=== PATIENT | female | born 1985 | race Caucasian/White ===

== ENCOUNTER 2017-07-01 18:51 | Inpatient (IN) | payer OTHER ==
[~2017-07-01] VITALS: Ht 160 cm; Wt 56.7 kg
[2017-07-01] MEDS ORDERED: NICOTINE POLACRILEX 4 MG GUM-PK OF TEN BC PRN (20:00)
[2017-07-01] MEDS ORDERED: LORAZEPAM 2 MG/1 ML VIAL IM PRN (20:00)
[2017-07-01] MEDS ORDERED: diphenhydrAMINE 50 MG CAPSULE PO PRN (20:00)
[2017-07-01] MEDS ORDERED: MIRALAX 17 GM POWD.PACK PO PRN (20:00)
[2017-07-01] MEDS ORDERED: LORAZEPAM 1 MG TABLET PO PRN ×2 (20:00)
[2017-07-01] MEDS ORDERED: MAG HYDROX/AL HYDROX/SIMETH 30 ML LIQUID UDC PO PRN (20:00)
[2017-07-01] MEDS ORDERED: ACETAMINOPHEN 325 MG TABLET PO PRN (20:00)
[2017-07-01] MEDS ORDERED: LOPERAMIDE HCL 2 MG CAPSULE PO PRN ×2 (20:00)
[2017-07-01] MEDS ORDERED: ONDANSETRON ODT 4 MG TAB.RAPDIS SL PRN (20:00)
[2017-07-01] MEDS ORDERED: ONDANSETRON 4 MG/2 ML VIAL IM PRN (20:00)
[2017-07-01] MEDS ORDERED: NICOTINE 14 MG/24HR PATCH TD PRN (20:00)
--- NOTE | 2017-07-01 20:00 | NUR ---
PRE - ADMISSION NOTE: Patient is a 32 year old female AOX4, presented to [facility] to detoxify from ETOH. Patient appears anxious, nervous, tremors to touch with flushed face. Patient is cooperative, speech is clear and audible. Patient reports NKA. Patient's vital signs are as follows: BP 132/97, HR92,T: 98.3, RA SPO2 97%. Patient denies any pain at this time. Patient instructed on unit protocol of vitals Q4H and COWS/CIWA assessments. Patient verbalized understanding and agreement. Patient also instructed on policy regarding destruction of any controlled substances/prescriptions brought to facility, and handling of all medications. Patient verbalized understanding and agreement. Will complete admission assessment when patient is brought up to unit.
[2017-07-01 20:03] VITALS: BP 133/97
--- NOTE | 2017-07-01 20:03 | NUR ---
ADMISSION NOTE: New patient is a 32year old female admitted to [facility] on 07/01/2017 @2002 for medically supervised withdrawal from Alcohol. Patient reports NKA. Patient is on Full Code, Regular diet, is on Fall and Seizures precautions. The patient denies a history of withdrawal-induced seizures. Past Medical History: 1. Anxiety disorder, 3. Depressive disorder, 4. Chronic tobacco use 5. Alcohol use disorder Patient denies Past Surgical History. PCP - patient can't recalled the name. Pre-assessment completed in intake. Patient provided UDS test at this time. Patient is ambulatory with steady gate, stable, A&Ox4, speech is clear. Height: 63 in, Weight: 125 lbs by standing scale. VS upon admission: BP 133/97, HR 92, Temperature 98.3, SPO2 98%, pain rated "0/10". CIWA 8. The patient presented with anxiety, agitation, nervousness, tremors that can be felt, diaphoresis, restless legs, and fatigue. Patient denies SI/HI. Upon initial assessment respirations unlabored and even. Patient denies SOB and chest pain. Lungs Sounds are clear bilaterally. Bowel Sounds active in all x4 quadrants. Abdomen is soft and non-tender. PERRLA, brisk capillary refill, photogrammetric tech equal and strong. Skin is intact, warm and dry to touch. Patient reports the following Substances Use: 1 ."Alcohol PO "since 2006. Patient reports "consuming Vodka 375 ml every day". Last used "Vodka 750 ml on 07/01/2017 @1000. She has been to multiple treatment programs in the past, the latest being at "[facility] 1 week since 06/21/2017 to 06/28/2017". Patient reports the longest being "1 week of sobriety but relapsed today". Patient reports "Tobacco use [id number] every day 1 pack = 20 cigarettes". Patient reports recent hospitalization in "[facility] today in the morning for few hours". MRSA collected from nares and sent to lab as ordered. Patient did not brought medications. Patient reports used " Lexapro 20 mg 1 tab PO on 07/01/2017@1000 ". Patient oriented to her room, Nurse Call Light, and [facility] Floor. Encouraged fluids as tolerated. Encouraged to attend activities groups. All needs met. Safety measures on place. Call light within reach, bed in lowest position and locked, padded rails up bilaterally rails up bilaterally. Will continue to monitor closely.
--- NOTE | 2017-07-01 20:34 | NUR ---
RN note Trazodone Patient reports taking Trazodone 300 mg PO HS. Notified Dr. Marie and he ordered one-time of the said medication to be administered bev and MD to see patient in the morning. Carried out.
[2017-07-01 20:44] LABS: *URINE HCG, QUAL NEGATIVE (NEGATIVE)
[2017-07-01] MEDS ORDERED: TRAZODONE 100 MG TABLET PO ONE (20:45)
[2017-07-01 20:54] LABS: *AMPHETAMINE, URINE NEGATIVE (NEGATIVE); *BARBITURATE, URINE POSITIVE (NEGATIVE); *CANNABINOID, URINE NEGATIVE (NEGATIVE); *COCCAINE, URINE NEGATIVE (NEGATIVE); *OPIATE, URINE NEGATIVE (NEGATIVE); *PHENCYCLIDINE SCREEN,URINE NEGATIVE (NEGATIVE)
--- NOTE | 2017-07-01 20:56 | NUR ---
RN note Thiamine Wasted 200 mg of Thiamine in the Pyxis instead of 100 mg. Juan of pharmacy was informed. Thiamine 100 mg IM injection to be administered by primary RN.
[2017-07-01] MEDS: GABAPENTIN 300 MG CAPSULE PO SCH (20:57)
--- NOTE | 2017-07-01 20:58 | NUR ---
PRN TRAZODONE 300 MG 3 TAB PO Patient c/o insomnia. PRN Trazodone 300 mg 3 tab. PO administrated with full glass of water as ordered. Patient tolerated well. All needs met. Safety measures on place. Call light within reach, bed in lowest position and locked, padded rails up bilaterally rails up bilaterally. Will continue to monitor closely.
--- NOTE | 2017-07-01 20:58 | NUR ---
PRN ATIVAN 2 MG 2 TAB PO ADMINISTRATION Patient c/o increased anxiety. PRN Ativan 2 mg 2 tab PO for CIWA 8 administrated as ordered. Patient tolerated well. All needs met. Safety measures on place. Call light within reach, bed in lowest position and locked, padded rails up bilaterally rails up bilaterally. Will continue to monitor closely.
[2017-07-01 21:00] LABS: BASOPHILS % (AUTO) 0.4 % (0.0-2.0); EOSINOPHILS % (AUTO) 0.4 % (0.0-7.0); HEMATOCRIT 40.6 % (37-47); HEMOGLOBIN 13.6 G/DL (12.0-16.0); LYMPHOCYTES # (AUTO) 1.8 K/UL (0.8-4.8); LYMPHOCYTES % (AUTO) 39.5 % (20.5-51.5); MEAN CORPUSCULAR HGB CONC 34 g/dL (32.0-37.0); MEAN CORPUSCULAR VOLUME 98.3 FL (81.0-99.0); MONOCYTES # (AUTO) 0.2 K/UL (0.1-1.30); MONOCYTES % (AUTO) 4.4 % (0.0-11.0); NEUTROPHILS # (AUTO) 2.5 K/UL (1.8-8.9); NEUTROPHILS % (AUTO) 55.3 % (38.5-71.5); PLATELET COUNT (AUTO) 232 K/UL (150-450); RED BLOOD CELL COUNT(AUTO) 4.13 MIL/UL (4.2-5.4); WHITE BLOOD COUNT (AUTO) 4.5 K/UL (4.0-11.2)
[2017-07-01] MEDS ORDERED: THIAMINE HCL 200 MG/2 ML VIAL IM ONE (21:00)
[2017-07-01] MEDS ORDERED: LORAZEPAM 1 MG TABLET PO SCH (21:00)
[2017-07-01 21:08] LABS: BILIRUBIN,TOTAL 0.3 mg/dL (0.2-1.0); CREATININE 0.7 mg/dL (0.6-1.3); MAGNESIUM 1.6 mg/dL (1.8-2.4); POTASSIUM 3.8 mmol/L (3.5-5.1); TOTAL PROTEIN, SERUM 7.3 g/dL (6.4-8.2)
--- NOTE | 2017-07-01 21:58 | NUR ---
RE-ASSESSMENT Patient is sleeping. Respirations even and unlabored. RR 15. PRN Trazodone 300 mg 3 tab. PO administrated for insomnia @2057 was effective. All needs met. Safety measures on place. Call light within reach, bed in lowest position and locked, padded rails up bilaterally rails up bilaterally. Will continue to monitor closely.
--- NOTE | 2017-07-01 21:58 | NUR ---
RE-ASSESSMENT Patient is sleeping. Respirations even and unlabored. RR 15. PRN Ativan 2 mg 2 tab PO administrated for anxiety @2057 was effective. All needs met. Safety measures on place. Call light within reach, bed in lowest position and locked, padded rails up bilaterally rails up bilaterally. Will continue to monitor closely.
[2017-07-02] VITALS (8 sets, daily range): BP systolic 106–144; BP diastolic 65–104
--- NOTE | 2017-07-02 06:51 | NUR ---
END OF SHIFT NOTE: Patient is a 32 year old female admitted to [facility] on 07/01/2017 @2002 for medically supervised withdrawal from Alcohol. Patient reports NKA, is on Full Code, Regular Diet, Fall and Seizures Precautions. The patient denies a history of withdrawal-induced seizures. Patient reports "consuming 750 mL of vodka on a daily basis, last used 750 ml on 07/01/2017@1000". She has struggled with multiple attempts at sobriety, the longest being 1 week of sobriety but relapsed today. She has been to multiple treatment programs in the past, the latest being at [facility] 1 week since 06/21/2017 to 06/28/2017. Past Medical History: Anxiety disorder, Depressive disorder, Chronic tobacco use, Alcohol use disorder. Patient discharged from a [facility] 3 days ago, and from [facility] on 07/01/2017. MRSA nares collected and sent to lab. Last CIWA 7 @0400. COWS/CIWA taken when patient's awake during night. Last VS @0400: T: 98.5, BP: 125/83, HR: 90, RR:18, RA O2Sat: 96%, body aches: "6/10". Patient denies SI/HI. Respirations unlabored and even. Skin is intact, warm and dry to touch. PRN Ativan 2 mg 2 tab PO administrated for anxiety@ 2057 and PRN Trazodone 300 mg 3 tab. PO administrated for insomnia @2057 were effective. Patient slept 8 hours, intake 500 ml, voided x1. Encouraged fluids intake as tolerated. Encouraged to attend groups activities. All needs met. Safety measures on place. Call light within reach, bed in lowest position and locked, padded rails up bilaterally. Patient endorsed to day shift nurse. Report given.
[2017-07-02] MEDS ORDERED: TRAZ300T2 PO (07:14)
--- NOTE | 2017-07-02 07:20 | NUR ---
Start of shift note SBAR report rcv'd. Pt was admitted for ETOH dependence. Pt has a PMHx of anxiety and depression. Pt denies any allergies, is on a regular diet and is a full code. Pt is on PRN medication to manage her s/s of withdrawal. Pt is currently resting in bed, pt has no complaints at this time. Will continue to monitor pt. All needs addressed at this time.
[2017-07-02] MEDS: LORAZEPAM 1 MG TABLET PO SCH ×3 (08:37→20:23)
[2017-07-02] MEDS: THIAMINE HCL 100 MG TABLET PO SCH (08:37)
[2017-07-02] MEDS: FOLIC ACID 1 MG TABLET PO SCH (08:37)
[2017-07-02] MEDS: GABAPENTIN 300 MG CAPSULE PO SCH (08:37)
[2017-07-02] MEDS: MULTIVITAMINS,THERAPEUTIC TABLET PO SCH (08:37)
[2017-07-02] MEDS ORDERED: TUBERCULIN,PURIF.PROT.DERIV. 5 TU/0.1 ML TEST ID ONE (09:00)
[2017-07-02] MEDS ORDERED: MAGNESIUM OXIDE 400 MG TABLET PO ONE (09:00)
[2017-07-02] MEDS: ESCITALOPRAM OXALATE 10 MG TABLET PO SCH (10:38)
[2017-07-02] MEDS: IBUPROFEN 400 MG TABLET PO PRN (12:15)
--- NOTE | 2017-07-02 12:15 | NUR ---
PRN administration Pt c/o headache 02/09. Administered PRN motrin per MD order. Will continue to monitor pt.
--- NOTE | 2017-07-02 13:15 | NUR ---
Reassessment Pt states that her headache is subsided. Will continue to monitor pt. All other needs addressed at this time.
[2017-07-02] MEDS ORDERED: LORAZEPAM 1 MG TABLET PO ONE (13:30)
[2017-07-02] MEDS: CLONIDINE HCL 0.1 MG TABLET PO PRN (17:20)
--- NOTE | 2017-07-02 17:20 | NUR ---
PRN administration Pt c/o severe anxiety and trembling. Pt has a CIWA of 11 and BP of 144/104. Administered PRN ativan and clonidine per MD order. Will continue to monitor pt.
--- NOTE | 2017-07-02 18:14 | NUR ---
Unable to reassess pt Pt is off unit, will reassess upon arrival on unit.
--- NOTE | 2017-07-02 18:29 | NUR ---
START OF SHIFT NOTE: Patient is a 32 year old female admitted to [facility] on 07/01/2017 @2002 for medically supervised withdrawal from Alcohol. Patient reports NKA, is on Full Code, Regular Diet, Fall and Seizures Precautions. The patient denies a history of withdrawal-induced seizures. Patient reports "consuming 750 mL of vodka on a daily basis, last used 750 ml on 07/01/2017@1000". She has struggled with multiple attempts at sobriety, the longest being 1 week of sobriety but relapsed 2 on 07/01/2017. She has been to multiple treatment programs in the past, the latest being at [facility] on 06/21/2017 to 06/28/2017. Past Medical History: Anxiety disorder, Depressive disorder, Chronic tobacco use, Alcohol use disorder. Patient discharged from a [facility] 3 days ago, and from [facility] on 07/01/2017. MRSA nares collected and sent to lab. Upon endorsement patient is in her room alert and oriented x4 with stable gait. Speech is soft and clear. CIWA 5. VSWNL. Respirations unlabored and even. Lungs Sounds are clear thoroughly. Abdomen is soft, non-tender. Bowels Sounds presents in all x4 quadrants. Skin is intact, warm, and dry. Encouraged to fluids intake as tolerated. Encouraged to attending groups activities. All needs met. Safety measures in place: Call light within reach, bed locked, and in lowest position, padded bed rails up bilaterally. Patient endorsed by day shift nurse, report received.
--- NOTE | 2017-07-02 18:29 | NUR ---
End of shift note Pt was admitted for ETOH dependence. Pt has a PMHx of anxiety and depression. Pt denies any allergies, is on a regular diet and is a full code. Pt started on an ativan taper during the shift. Pt required a onetime ativan and one PRN ativan/clonidine to manage her s/s of withdrawal with effectiveness. Pt ate 0% of breakfast, 100% of lunch and dinner, drank 2009ml of fluids and had 3 voids. Pt has no complaints at this time. All needs addressed at this time. SBAR report to be endorsed to oncoming nurse.
--- NOTE | 2017-07-02 18:35 | NUR ---
Reassessment Pt has a CIWA of 5 and a BP of 130/90. Pt states the medication was effective in alleviating her s/s of withdrawal. All needs addressed at this time.
[2017-07-02] MEDS: TRAZODONE 100 MG TABLET PO PRN (20:23)
--- NOTE | 2017-07-02 20:23 | NUR ---
PRN TRAZODONE 300 MG 3 TAB PO ADMINISTRATION Patient c/o insomnia. PRN Trazodone 300 mg 3 tab. PO administrated with full glass of water as ordered. Patient tolerated well. All needs met. Safety measures on place. Call light within reach, bed in lowest position and locked, padded rails up bilaterally rails up bilaterally. Will continue to monitor closely.
[2017-07-02] MEDS ORDERED: GABAPENTIN 300 MG CAPSULE PO SCH (21:00)
--- NOTE | 2017-07-02 21:23 | NUR ---
RE-ASSESSMENT Patient is sleeping. Respirations even and unlabored. RR 16. PRN Trazodone 300 mg 3 tab. PO administrated for insomnia @2022 was effective. All needs met. Safety measures on place. Call light within reach, bed in lowest position and locked, padded rails up bilaterally rails up bilaterally. Will continue to monitor closely.
[2017-07-03] VITALS: BP 116/81
[2017-07-03] MEDS: CLONIDINE HCL 0.1 MG TABLET PO PRN (03:01)
--- NOTE | 2017-07-03 03:01 | NUR ---
PRN CLONIDINE 0.1 MG 1 TAB PO ADMINISTRATION Patient c/o anxiety. CIWA 5. VS: BP 125/85, HR 87, T 97.9, RR 19, RA O2Sat 98%. PRN Clonidine 0.1 mg 1 tab PO administrated for anxiety as ordered with full glass of water. Patient tolerated well. All needs met. Safety measures on place. Call light within reach, bed in lowest position and locked, padded rails up bilaterally. Will continue to monitor closely.
[2017-07-03 04:00] VITALS: BP 125/85
--- NOTE | 2017-07-03 04:01 | NUR ---
RE-ASSESSMENT Patient is sleeping. Respirations even and unlabored. RR 14. PRN Clonidine 0.1 mg 1 tab PO for anxiety administrated @0301 was effective. All needs met. Safety measures on place. Call light within reach, bed in lowest position and locked, padded rails up bilaterally rails up bilaterally. Will continue to monitor closely.
--- NOTE | 2017-07-03 06:57 | NUR ---
END OF SHIFT NOTE: Patient is a 32 year old female admitted to [facility] on 07/01/2017 @2003 for medically supervised withdrawal from Alcohol. Patient reports NKA, is on Full Code, Regular Diet, Fall and Seizures Precautions. The patient denies a history of withdrawal-induced seizures. Patient reports "consuming 750 mL of vodka on a daily basis, last used 750 ml on 07/01/2017@1000". She has struggled with multiple attempts at sobriety, the longest being 1 week of sobriety but relapsed today. PMH: Anxiety disorder, Depressive disorder, Chronic tobacco use, Alcohol use disorder. Last CIWA 5 @0400. COWS/CIWA taken when patient's awake during night. VS: BP 125/85, HR 87, T 97.9, RR 19, RA O2Sat 98, pain level "0/10". Patient denies SI/HI. Respirations unlabored and even. Skin is intact, warm and dry to touch. PRN Trazodone 300 mg 3 tab. PO administrated for insomnia @2022, PRN Clonidine 0.1 mg 1 tab PO administrated @300for anxiety were effective. Patient slept 5 hours, intake 1,500 ml, voided x2. Encouraged fluids intake as tolerated. Encouraged to attend groups activities. All needs met. Safety measures on place. Call light within reach, bed in lowest position and locked, padded rails up bilaterally. Patient endorsed to day shift nurse. Report given.
--- NOTE | 2017-07-03 07:30 | NUR ---
START OF SHIFT Pt 32 y/o female admitted for etoh dependence. Pt received awake standing in room watching television. Pt alert and oriented to name, place, and time. Perrla. Skin warm and slightly moist to touch. Respirations even and unlabored. Bilateral hand tremors noted slightly. Pt expressed felt anxious r/t handling finances and bills, and stated did not sleep well last night. Told pt I will make discharge aware when they arrive to help her. It was reported that pt slept for 5 hours last night. Bed on lowest position with side rails x2 up for safety. Call light within reach. No distress noted at this time.
[2017-07-03 08:06] LABS: HEPATITIS B SURFACE AG Negative (Negative)
[2017-07-03] MEDS: ESCITALOPRAM OXALATE 10 MG TABLET PO SCH (08:18)
[2017-07-03] MEDS: MULTIVITAMINS,THERAPEUTIC TABLET PO SCH (08:18)
[2017-07-03] MEDS: THIAMINE HCL 100 MG TABLET PO SCH (08:18)
[2017-07-03] MEDS: FOLIC ACID 1 MG TABLET PO SCH (08:18)
[2017-07-03] MEDS: LORAZEPAM 1 MG TABLET PO SCH ×4 (08:18→20:27)
[2017-07-03 08:21] VITALS: BP 114/81
[2017-07-03] MEDS ORDERED: GABAPENTIN 300 MG CAPSULE PO SCH (09:00)
[2017-07-03] MEDS ORDERED: LORAZEPAM 1 MG TABLET PO SCH (09:00)
[2017-07-03] MEDS ORDERED: hydrALAZINE HCL 50 MG TABLET PO PRN (12:30)
[2017-07-03 12:31] VITALS: BP 114/87
--- NOTE | 2017-07-03 13:49 | NUR ---
therapist prompted client to attend group today.
[2017-07-03] MEDS: GABAPENTIN 300 MG CAPSULE PO SCH ×2 (14:57→20:26)
[2017-07-03] MEDS ORDERED: INFLUENZA VACCINE 2017-2018 0.5 ML DISP.SYRIN IM ONE (15:00)
[2017-07-03] MEDS ORDERED: PNEUMOCOCCAL 23-VAL P-SAC VAC 0.5 ML VIAL IM ONE (15:00)
[2017-07-03 17:04] VITALS: BP 131/85
--- NOTE | 2017-07-03 17:15 | NUR ---
PRN Pt states feels nauseated. Zofran odt prn per MD order given and tolerated well.
--- NOTE | 2017-07-03 18:15 | NUR ---
END OF SHIFT Pt 32 y/o female admitted for etoh dependence. Pt alert and oriented to name, place, and time. Perrla. Skin warm and dry to touch. Respirations even and unlabored. Bilateral hand tremors noted. Pt with periods of anxiety this morning. Pt attended group activity. Pt was seen by MD today. Pt medication compliant and tolerated well. No ASE noted. Bed on lowest position with side rails x2 up for safety. Call light within reach. No distress noted at this time.
--- NOTE | 2017-07-03 18:15 | NUR ---
PRN EVAL Pt denies any nausea at this time.
[2017-07-03 20:00] VITALS: BP 129/83
--- NOTE | 2017-07-03 20:00 | NUR ---
START OF SHIFT NOTE RECEIVED REPORT FROM DAY SHIFT NURSE. PATIENT IS A 32 YEAR OLD FEMALE ADMITTED FOR ETOH DEPENDENCE. PATIENT IS ON 5 DAY ATIVAN TAPER. UPON ADMISSION, PATIENT REPORTS DRINKING VODKA 750 ML DAILY FOR 1 WEEK. PATIENT REPORTS PMH OF ANXIETY, DEPRESSION AND ALCOHOL USE D/O. NO SEIZURE HISTORY . SKIN INTACT. PATIENT WAS GIVEN PRN ZOFRAN. LAST CIWA 6. PATIENT JUST RETURNED TO HER ROOM FROM GROUPS. PATIENT STATES SHE'S ANXIOUS BUT MEDICATIONS ARE EFFECTIVE IN CONTROLLING HER WITHDRAWAL SYMPTOMS. APPETITE IS GOOD AND DRINKING FLUIDS WELL. DENIES ANY PAIN AT THIS TIME AND NO N/V. ON FALL/SEIZURE PRECAUTION. SAFETY MEASURES IN PLACE. CALL LIGHT IN REACH. WILL CONTINUE TO MONITOR
[2017-07-03] MEDS: CLONIDINE HCL 0.1 MG TABLET PO SCH (20:26)
[2017-07-03] MEDS: TRAZODONE 100 MG TABLET PO PRN (21:24)
--- NOTE | 2017-07-03 21:24 | NUR ---
PRN TRAZADONE ADMINISTRATION PATIENT REQUESTS FOR SLEEP AID. PRN TRAZADONE GIVEN. WILL MONITOR FOR EFFECTIVENESS
--- NOTE | 2017-07-03 22:30 | NUR ---
PRN TRAZADONE RE-ASSESSMENT PATIENT ASLEEP AT THIS TIME. RESPIRATION EVEN AND UNLABORED. SAFETY MEASURES IN PLACE. CALL LIGHT IN REACH. WILL CONTINUE TO MONITOR.
[2017-07-04] VITALS: BP 92/53
--- NOTE | 2017-07-04 | NUR ---
CIWA DEFERRED PATIENT SLEEPING. CIWA DEFERRED. RESPIRATION EVEN AND UNLABORED. SAFETY MEASURES IN PLACE. CALL LIGHT IN REACH. WILL CONTINUE TO MONITOR
[2017-07-04 04:00] VITALS: BP_SYST 103; BP_SYST 115; BP_DIAS 70; BP_DIAS 71
--- NOTE | 2017-07-04 04:00 | NUR ---
CIWA DEFERRED PATIENT SLEEPING. CIWA DEFERRED. RESPIRATION EVEN AND UNLABORED. SAFETY MEASURES IN PLACE. CALL LIGHT IN REACH. WILL CONTINUE TO MONITOR
--- NOTE | 2017-07-04 07:22 | NUR ---
END OF SHIFT NOTE PATIENT IS A 32 YEAR OLD FEMALE ADMITTED FOR ETOH DEPENDENCE. PATIENT IS ON 5 DAY ATIVAN TAPER, TOLERATED WELL, NO ADVERSE REACTION. PATIENT STATES SHE WAS ANXIOUS , APPETITE IS GOOD AND DRINKING FLUIDS WELL, DENIES ANY PAIN AND NO N/V BEGINNING OF SHIFT. PER PATIENT MEDICATIONS ARE EFFECTIVE IN CONTROLLING HER WITHDRAWAL SYMPTOMS. PATIENT WAS GIVEN PRN TRAZADONE FOR SLEEP, EFFECTIVE. PATIENT COMPLIANT WITH MEDICATION AND TREATMENT PLAN. ON FALL/SEIZURE PRECAUTION. SAFETY MEASURES IN PLACE. CALL LIGHT IN REACH. WILL CONTINUE TO MONITOR . SLEPT 8 HOURS. FLUID INTAKE 1,500 ML. VOIDED X 2 . NO BM. LAST CIWA 5.
--- NOTE | 2017-07-04 07:30 | NUR ---
start of shift note: received pt from jammer hooker nurse, pt is in stable condition no s/s of pain or discomfort. pt is admitted to [facility] for etoh withdrawal/dependence. pt's last ciwa is 5. pt slept for 8 hrs. pt is tolerating taper medication well. no A/R to medication. will continue to monitor pt for any changes. and continue to meet pt's needs
[2017-07-04] MEDS: ESCITALOPRAM OXALATE 10 MG TABLET PO SCH (08:43)
[2017-07-04] MEDS: GABAPENTIN 300 MG CAPSULE PO SCH ×3 (08:43→20:43)
[2017-07-04] MEDS: THIAMINE HCL 100 MG TABLET PO SCH (08:44)
[2017-07-04] MEDS: CLONIDINE HCL 0.1 MG TABLET PO SCH ×2 (08:44→20:43)
[2017-07-04] MEDS: FOLIC ACID 1 MG TABLET PO SCH (08:44)
[2017-07-04] MEDS: MULTIVITAMINS,THERAPEUTIC TABLET PO SCH (08:44)
[2017-07-04] MEDS ORDERED: LORAZEPAM 1 MG TABLET PO SCH (09:00)
[2017-07-04 09:27] VITALS: BP 107/72
--- NOTE | 2017-07-04 10:45 | NUR ---
Therapist prompted client about group times. Client stated she would attend all groups today.
[2017-07-04 14:58] VITALS: BP 107/72
[2017-07-04] MEDS: LORAZEPAM 1 MG TABLET PO SCH ×2 (15:13→20:43)
[2017-07-04 16:46] VITALS: BP 128/88
--- NOTE | 2017-07-04 18:47 | NUR ---
END OF SHIFT NOTE: PT IS IN STABLE CONDITION AT THIS TIME NO S/S OF PAIN OR DISCOMFORT. PT IS ADMITTED TO [facility] FOR ETOH WITHDRAWAL/DEPENDENCE. PTS LAST CIWA 4. READ PT'S TB SKIN TEST AND IS NEGATIVE. NO A/R TO MEDICATIONS. WILL ENDORSE PT TO [employer]EN[employer]SE [employer]ANSPLANTER NURSE.
--- NOTE | 2017-07-04 19:00 | NUR ---
Start of Shift Patient Received. Patient is in activities room participating in group activities. Patient is a 32 year old female admitted on 07/01/17 for ETOH Dependence under the care of Dr. Cody and is currently receiving a 5 day Ativan taper. Patient verbalizes no known allergies, wishes to be full code, following a regular diet, placed on fall and seizure precautions, with skin noted intact. Past medical history of Anxiety and Depression. Per endorsement, PPD reassessed and noted to be negative. No PRN medications administered. Last noted CIWA 4. All needs attended to promptly. Will continue plan of care as ordered
[2017-07-04 20:41] VITALS: BP 126/87
[2017-07-04] MEDS: HYDROXYZINE PAMOATE 25 MG CAPSULE PO PRN (21:36)
[2017-07-04] MEDS: TRAZODONE 100 MG TABLET PO PRN (21:36)
--- NOTE | 2017-07-04 21:40 | NUR ---
PRN Medication Administration Patient is verbalizing increased anxiety and inability of falling asleep. PRN Vistaril and Trazodone administered as per ordered. Will continue to monitor.
--- NOTE | 2017-07-04 22:30 | NUR ---
PRN Medication Reassessment Patient is bed sleeping. Breathing even and non labored. No pain or discomfort noted as evidence of no facial grimicing noted. PRN Vistaril and trazodone noted to be effective. Will continue to monitor.
[2017-07-05 00:09] VITALS: BP 110/77
[2017-07-05 04:40] VITALS: BP 102/53
--- NOTE | 2017-07-05 07:08 | NUR ---
End of Shift Patient is in bed sleeping but easily aroused to verbal stimuli. Breathing even and non labored. Patient is a 32 year old female admitted on 07/01/17 for ETOH Dependence and continues on a 5 day Ativan taper. No Known Allergies, Full Code, following a regular diet, placed on fall and seizure precautions, with skin noted intact. Past medical history of Anxiety and Depression. Patient received PRN Trazodone and Vistaril with medications noted to be effective. Last noted CIWA 8. All needs attended to promptly. Will endorse to continue plan of care as ordered.
--- NOTE | 2017-07-05 07:36 | NUR ---
START OF SHIFT Pt 32 y/o female admitted for etoh dependence. Pt received awake in bed. Pt alert and oriented to name, place, and time. Perrla. Skin warm and slightly moist to touch. Respirations even and unlabored. Bilateral hand tremors noted slightly. Pt appears anxiuos with pressured speech noted. It was reported that pt slept for 7.5 hours last night. Bed on lowest position with side rails x2 up for safety. Call light within reach. No distress noted at this time.
[2017-07-05 08:00] VITALS: BP 110/67
[2017-07-05] MEDS: GABAPENTIN 300 MG CAPSULE PO SCH ×3 (08:10→20:46)
[2017-07-05] MEDS: IBUPROFEN 400 MG TABLET PO PRN (08:10)
[2017-07-05] MEDS: THIAMINE HCL 100 MG TABLET PO SCH (08:10)
[2017-07-05] MEDS: HYDROXYZINE PAMOATE 25 MG CAPSULE PO PRN (08:10)
[2017-07-05] MEDS: FOLIC ACID 1 MG TABLET PO SCH (08:10)
[2017-07-05] MEDS: ESCITALOPRAM OXALATE 10 MG TABLET PO SCH (08:10)
[2017-07-05] MEDS: MULTIVITAMINS,THERAPEUTIC TABLET PO SCH (08:10)
--- NOTE | 2017-07-05 08:13 | NUR ---
PRN Pt with c/o headache 01/09. Motrin po prn per MD order given and tolerated well.
--- NOTE | 2017-07-05 08:14 | NUR ---
PRN pt states feels anxious. Vistaril po prn per MD order given and tolerated well.
[2017-07-05] MEDS ORDERED: LORAZEPAM 1 MG TABLET PO SCH (09:00)
--- NOTE | 2017-07-05 09:13 | NUR ---
PRN EVAL Pt states headache 10/12.
--- NOTE | 2017-07-05 09:14 | NUR ---
PRN EVAL Pt states feels less anxious at this time.
[2017-07-05 12:37] VITALS: BP 114/75
[2017-07-05] MEDS ORDERED: AZITHROMYCIN 250 MG TABLET PO ONE (13:00)
[2017-07-05] MEDS ORDERED: ESCI10TA PO (15:01)
[2017-07-05] MEDS ORDERED: CLON0.1T14 PO (15:01)
[2017-07-05] MEDS ORDERED: AZIT250T6 PO (15:01)
[2017-07-05] MEDS ORDERED: GABA-534 PO (15:01)
[2017-07-05] MEDS ORDERED: IBUP-1953 PO (15:01)
[2017-07-05] MEDS ORDERED: HYDR-3895 PO (15:01)
[2017-07-05 17:07] VITALS: BP 123/90
--- NOTE | 2017-07-05 18:19 | NUR ---
END OF SHIFT Pt 32 y/o female admitted for etoh dependence. Pt alert and oriented to name, place, and time. Perrla. Skin warm and dry to touch. Respirations even and unlabored. Bilateral hand tremors noted. Pt attended group activity. Pt was seen by MD today. Pt medication compliant and tolerated well. No ASE noted. Bed on lowest position with side rails x2 up for safety. Call light within reach. No distress noted at this time.
--- NOTE | 2017-07-05 19:00 | NUR ---
Start of Shift Patient Received. Patient is in activities room participating in group activities. Patient is a 32 year old female admitted on 07/01/17 for ETOH Dependence and continues on a 5 day Ativan taper. No Known Allergies, Full Code, following a regular diet, placed on fall and seizure precautions, with skin noted intact. Past medical history of Anxiety and Depression. Per endorsement, patient received PRN Motrin and Vistaril with medication noted to be effective. Patient is set for discharge tomorrow 07/06/17. Last noted CIWA 3. All needs attended to promptly. Will continue plan of care as ordered.
[2017-07-05 20:29] VITALS: BP 139/98
[2017-07-05] MEDS: CLONIDINE HCL 0.1 MG TABLET PO SCH (20:46)
[2017-07-05] MEDS: TRAZODONE 100 MG TABLET PO PRN (22:52)
--- NOTE | 2017-07-05 22:55 | NUR ---
PRN Medication Administration Patient verbalizes inability of falling asleep. PRN Trazodone administered as per order. Will continue to monitor.
--- NOTE | 2017-07-05 23:30 | NUR ---
PRN Medication Reassessment Patient is bed sleeping. Breathing even and non labored. No pain or discomfort noted as evidence of no facial grimacing noted. PRN Trazodone noted to be effective. Will continue to monitor.
[2017-07-06] VITALS: BP 111/76
[2017-07-06 04:20] VITALS: BP 103/64
--- NOTE | 2017-07-06 07:01 | NUR ---
End of Shift Patient is in bed sleeping. Breathing even and non labored. No signs of pain or discomfort noted. Patient is a 32 year old female admitted on 07/01/17 for ETOH Dependence and continues on a 5 day Ativan taper. No Known Allergies, Full Code, following a regular diet, placed on fall and seizure precautions, with skin noted intact. Past medical history of Anxiety and Depression. Patient received PRN Trazodone for inability of falling asleep with medication noted to be effective. Patient is set for discharge today 07/06/17. Last noted CIWA 8. All needs attended to promptly. Will continue plan of care as ordered.
--- NOTE | 2017-07-06 07:36 | NUR ---
START OF SHIFT Pt 32 y/o female admitted for etoh dependence. Pt received awake in bed. Pt alert and oriented to name, place, and time. Perrla. Skin warm and slightly moist to touch. Respirations even and unlabored. Bilateral hand tremors noted slightly. Pt appears anxious with pressured speech noted. It was reported that pt slept for 6 hours last night. Pt is scheduled to be discharged today. Bed on lowest position with side rails x2 up for safety. Call light within reach. No distress noted at this time.
[2017-07-06] MEDS: THIAMINE HCL 100 MG TABLET PO SCH (08:11)
[2017-07-06] MEDS: HYDROXYZINE PAMOATE 25 MG CAPSULE PO PRN (08:11)
[2017-07-06] MEDS: GABAPENTIN 300 MG CAPSULE PO SCH (08:11)
[2017-07-06] MEDS: MULTIVITAMINS,THERAPEUTIC TABLET PO SCH (08:12)
[2017-07-06] MEDS: ESCITALOPRAM OXALATE 10 MG TABLET PO SCH (08:12)
[2017-07-06] MEDS: IBUPROFEN 400 MG TABLET PO PRN (08:12)
[2017-07-06] MEDS: FOLIC ACID 1 MG TABLET PO SCH (08:12)
--- NOTE | 2017-07-06 08:14 | NUR ---
PRN Pt with c/o lower back pain 01/09. Motrin po prn per MD order given and tolerated well.
--- NOTE | 2017-07-06 08:15 | NUR ---
PRN Pt states feels anxious. Vistaril po prn per MD order given and tolerated well.
[2017-07-06 08:48] VITALS: BP 122/82
[2017-07-06] MEDS ORDERED: AZITHROMYCIN 250 MG TABLET PO SCH (09:00)
--- NOTE | 2017-07-06 09:14 | NUR ---
PRN MONCHO Pt states pain 10/12.
--- NOTE | 2017-07-06 09:15 | NUR ---
MITCHELL IVAN Pt observed walking around in the hallways.
--- NOTE | 2017-07-06 09:22 | NUR ---
DISCHARGE Pt 32 y/o female admitted for etoh dependence. Pt discharged to [facility] via private transport to airport. Pt alert and oriented to name, place, and time. Perrla. Skin warm and dry to touch. Respirations even and unlabored. VS wnl. No distress noted. All discharge papers, prescriptions, and belongings packed in pt bag. No belongings in casette noted. No belongings in cabinet noted. No home medications noted and pt clarified.
== END 2017-07-06 09:22 | disposition other institution (70) | DRG 895 ==
LOC: SRC 18:51
PROVIDERS: ADMIT Internal Medicine; ATTEND Internal Medicine
PROC: HZ2ZZZZ Detoxification Services for Substance Abuse Treatment (ICD-10-PCS; principal; 2017-07-01)
PROC: HZ41ZZZ Group Counseling for Substance Abuse Treatment, Behavioral (ICD-10-PCS; 2017-07-02)
PROC: HZ31ZZZ Individual Counseling for Substance Abuse Treatment, Behavioral (ICD-10-PCS; 2017-07-03)
DX: F10.230 Alcohol dependence with withdrawal, uncomplicated (principal); F33.2 Major depressive disorder, recurrent severe without psychotic features; K70.10 Alcoholic hepatitis without ascites; I15.9 Secondary hypertension, unspecified; Y90.8 Blood alcohol level of 240 mg/100 ml or more; Z79.899 Other long term (current) drug therapy; Z87.442 Personal history of urinary calculi; J20.9 Acute bronchitis, unspecified; J00 Acute nasopharyngitis [common cold]; F17.210 Nicotine dependence, cigarettes, uncomplicated; E83.42 Hypomagnesemia; G47.00 Insomnia, unspecified; F41.9 Anxiety disorder, unspecified; R73.9 Hyperglycemia, unspecified
CPT/HCPCS: 36415; 70030-TC; 80307; 80345; 80346; 83690; 83735; 84703; 85025; 86580; 86592; 86705; 86803; 87340; 87806; 90686; 90732; G0480; J3411; Q0144; Q0162

== ENCOUNTER 2017-07-29 01:24 | Inpatient (IN) | payer OTHER ==
[~2017-07-29] VITALS: Ht 167.6 cm; Wt 54.4 kg
--- NOTE | 2017-07-29 01:00 | NUR ---
INTAKE ASSESSMENT Pt assessed in intake.Pt is A/A/O X 4,speech is clear and easy to understand;gait is steady;V/S/S;no c/o pain or s/s acute distress noted.Pt informed of [facility] rules and regulations.Pt is cooperative and verbalizes understanding.Pt was recently discharged from [facility] earlier this July.
[~2017-07-29 01:24] MED LIST: AZIT250T6 PO; CLON0.1T14 PO; ESCI10TA PO; GABA-534 PO; HYDR-3895 PO; IBUP-1953 PO; TRAZ300T2 PO
[2017-07-29] MEDS ORDERED: LORAZEPAM 2 MG/1 ML VIAL IM PRN (02:00)
[2017-07-29] MEDS ORDERED: MAGNESIUM HYDROXIDE 30 ML LIQUID UDC PO PRN (02:00)
[2017-07-29] MEDS ORDERED: LORAZEPAM 1 MG TABLET PO PRN ×2 (02:00)
[2017-07-29] MEDS ORDERED: ONDANSETRON ODT 4 MG TAB.RAPDIS SL PRN (02:00)
[2017-07-29] MEDS ORDERED: THIAMINE HCL 200 MG/2 ML VIAL IM ONE (02:00)
[2017-07-29] MEDS ORDERED: LOPERAMIDE HCL 2 MG CAPSULE PO PRN ×2 (02:00)
[2017-07-29] MEDS ORDERED: MIRALAX 17 GM POWD.PACK PO PRN (02:00)
[2017-07-29] MEDS ORDERED: DICYCLOMINE HCL 20 MG TABLET PO PRN (02:00)
[2017-07-29] MEDS ORDERED: ACETAMINOPHEN 325 MG TABLET PO PRN (02:00)
[2017-07-29] MEDS ORDERED: ONDANSETRON 4 MG/2 ML VIAL IM PRN (02:00)
[2017-07-29] MEDS ORDERED: CLONIDINE HCL 0.1 MG TABLET PO PRN (02:00)
[2017-07-29] MEDS ORDERED: diphenhydrAMINE 50 MG CAPSULE PO PRN (02:00)
[2017-07-29] MEDS ORDERED: IBUPROFEN 400 MG TABLET PO PRN (02:00)
[2017-07-29] MEDS ORDERED: HYDROXYZINE PAMOATE 25 MG CAPSULE PO PRN ×2 (02:00→13:45)
[2017-07-29] MEDS ORDERED: MAG HYDROX/AL HYDROX/SIMETH 30 ML LIQUID UDC PO PRN (02:00)
[2017-07-29 02:30] LABS: *AMPHETAMINE, URINE NEGATIVE (NEGATIVE); *BARBITURATE, URINE NEGATIVE (NEGATIVE); *CANNABINOID, URINE NEGATIVE (NEGATIVE); *COCCAINE, URINE NEGATIVE (NEGATIVE); *OPIATE, URINE NEGATIVE (NEGATIVE); *PHENCYCLIDINE SCREEN,URINE NEGATIVE (NEGATIVE)
--- NOTE | 2017-07-29 02:30 | NUR ---
ADMISSION NOTE HT=5 FEET;6 INCHES. CN=688 POUNDS. V/S:- B/P=115/22; T=97.2; P=92; R=18; O2 SAT=97%. CIWA=5 Admitting 32 y/o female to [facility] on 07/29/17 at 0230 for medically supervised withdrawals from Alcohol.Pt is A/O X 4,denies any allergies to food or medications,placed on regular diet and full code status.Pt placed on fall and seizure precautions.Pt has a PMH of anxiety and depression;no seizure history noted.Pt reports having several kidney stones removal surgeries,last one was in 2014. Pt was recently discharged from [facility].She was sober for 3 weeks then relapsed due to having problems with her boy friend.She reports that she has been drinking 750 mls of Vodka on a daily basis for the past one week.Pt c/o having anxiety,restlessness,tremors,mild head and body ache.Pt denies any SI/HI/AH/V/H.Skin is intact,warm and dry to touch;breathing is even and non labored;abdomen is soft and palpable with b/s present x 4.No c/o N/V/D noted.Pt oriented to room and unit;care plan and safety checks initiated;educated on Hep C,smoking cessation,seizures,fall prevention and alcohol use disorder.Pt declines smoking cessation at this time,refused PNA vaccine,stated that she has already received Flu vaccination this month.All safety measures in place per hospital policy,bed locked in the lowest position,side rails up and padded x 2 with call light within reach.Pt is unable to remember the name of her PCP.Dr Cody notified,will continue to monitor. DRUG HX ALCOHOL (VODKA)-PT HAS BEEN DRINKING 750 MLS DAILY FOR PAST WEEK. LAST DRIK WAS ON 07/28/17 AT 1330. CIGARETTES-PT HAS BEEN SMOKING 1/2 PACK OF CIGS DAILY SINCE THE AGE OF 16. LAST CIG. WAS ON 07/28/17 AT 0100. DETOX HX- [facility] [place] PT'S LONGEST SOBER PERIOD WAS FOR 45 DAYS WHICH LASTED FROM SEPTEMBER 2016 TO OCTOBER 2016.
[2017-07-29 02:31] LABS: *URINE HCG, QUAL NEGATIVE (NEGATIVE)
[2017-07-29 02:34] LABS: BILIRUBIN,TOTAL 0.5 mg/dL (0.2-1.0); CREATININE 0.8 mg/dL (0.6-1.3); MAGNESIUM 1.8 mg/dL (1.8-2.4); POTASSIUM 3.3 mmol/L (3.5-5.1); TOTAL PROTEIN, SERUM 7.3 g/dL (6.4-8.2)
[2017-07-29 02:43] LABS: BASOPHILS % (AUTO) 0.4 % (0.0-2.0); EOSINOPHILS # (AUTO) 0.2 K/uL (0.0-0.7); EOSINOPHILS % (AUTO) 2.5 % (0.0-7.0); HEMATOCRIT 44.4 % (31.2-41.9); HEMOGLOBIN 15.3 g/dL (10.9-14.3); LYMPHOCYTES % (AUTO) 47.5 % (20.5-51.5); MEAN CORPUSCULAR HEMOGLOBIN 33.7 uug (24.7-32.8); MEAN CORPUSCULAR HGB CONC 34 g/dL (32.3-35.6); MONOCYTES # (AUTO) 0.3 K/uL (2.0-10.0); MONOCYTES % (AUTO) 3.2 % (0.0-11.0); NEUTROPHILS # (AUTO) 3.9 K/uL (1.8-8.9); NEUTROPHILS % (AUTO) 46.4 % (38.5-71.5); PLATELET COUNT (AUTO) 267 K/uL (179-408); RED BLOOD CELL COUNT(AUTO) 4.53 MIL/uL (3.63-4.92); WHITE BLOOD COUNT (AUTO) 8.3 K/uL (3.8-11.8)
--- NOTE | 2017-07-29 02:53 | NUR ---
PRN MEDS PRN BENADRYL GIVEN FOR C/O INSOMNIA AND PRN ATIVAN 1 MG PO GIVEN FOR CIWA SCORE OF 5.WILL MONITOR FOR EFFECTIVENESS.
[2017-07-29] MEDS ORDERED: THIAMINE HCL 200 MG/2 ML VIAL ONE (02:58)
[2017-07-29] MEDS ORDERED: diphenhydrAMINE 50 MG CAPSULE ONE (02:59)
[2017-07-29] MEDS ORDERED: LORAZEPAM 1 MG TABLET ONE (02:59)
[2017-07-29 03:11] LABS: THYROID STIMULATING HORMONE 3.107 mIU/mL (0.358-3.740)
--- NOTE | 2017-07-29 03:50 | NUR ---
PT IS RESTING IN BED WITH EYES CLOSED.NO S/SF DISTRESS NOTED.
[2017-07-29 04:00] VITALS: BP 115/77
--- NOTE | 2017-07-29 06:49 | NUR ---
END OF SHIFT Pt is 32 y/o female to [facility] on 07/29/17 at 0230 for medically supervised withdrawals from Alcohol.Pt is A/O X 4,denies any allergies to food or medications,placed on regular diet and full code status.Pt placed on fall and seizure precautions.Pt has a PMH of anxiety and depression;no seizure history noted.PRN Benadryl and Ativan were given and were effective.Pt slept intermittently for 3 hrs,fluid intake was 500 mls,voided x 2.All safety measures in place per hospital policy,bed locked in the lowest position,side rails up and padded x 2 with call light within reach;will continue to monitor. Addendum: 07/29/17 at 0712 by AMARIS FITZGERALD RN LAST CIWA = 2 AT 0400.
--- NOTE | 2017-07-29 07:40 | NUR ---
BEGINNING OF SHIFT Patient endorsement report received from operation shift supervisor nurse, all pertinent information discussed. Patient is a 32 year old male admitted on: 07/29/2017 with admitting Dx: ETOH Dependence. Patient is currently with no ongoing taper but, continues under close observation, monitoring closely for s/sx of withdrawal. received PRN:Ativan, and Benadryl as ordered. Patient with last ciwa score of: 2. Patient slept for 3 hours. Patient received awake, alert and oriented x4, educated patient regarding plan of care for the day and medication regimen with good verbal understanding. Safety measures in place. call light kept with in reach, Fall and seizure precautions in place. will continue to monitor closely.
[2017-07-29 08:04] VITALS: BP 124/76
[2017-07-29] MEDS: THIAMINE HCL 100 MG TABLET PO SCH (08:45)
[2017-07-29] MEDS: FOLIC ACID 1 MG TABLET PO SCH (08:45)
[2017-07-29] MEDS: MULTIVITAMINS,THERAPEUTIC TABLET PO SCH (08:45)
[2017-07-29 12:10] VITALS: BP 127/80
[2017-07-29] MEDS: LORAZEPAM 1 MG TABLET PO SCH ×3 (12:12→20:23)
--- NOTE | 2017-07-29 13:48 | NUR ---
PSYCHIATRIST COMMUNICATION Per patient request to take her Lexapro, as prescribed, notified Dr. Lopez with new orders, ok for patient to continue taking Lexapro 20mg PO daily, doctor edouard unable to input orders at this time, order was read back and verified with doctor, orders were noted and carried out.
[2017-07-29] MEDS: ESCITALOPRAM OXALATE 10 MG TABLET PO SCH (14:00)
[2017-07-29] MEDS: GABAPENTIN 300 MG CAPSULE PO SCH ×2 (14:00→20:23)
[2017-07-29] MEDS ORDERED: POTASSIUM CHLORIDE 10 MEQ CAPSULE.SA PO ONE (15:00)
[2017-07-29] MEDS: VENLAFAXINE XR 75 MG CAP.SR.24H PO SCH (17:26)
[2017-07-29 17:33] VITALS: BP 148/85
--- NOTE | 2017-07-29 18:51 | NUR ---
END OF SHIFT Patient alert and oriented x4, patient compliant with therapeutic plan of care. Patient with admitting Dx: etoh dependence, patient was started on an Ativan taper as ordered, medication administered as ordered, well tolerated. Patients MRSA swab specimen collected during shift. Patient was also seen by Dr. Lopez during shift, medications were reconciled. 0900 assessment patient presented with: mild nausea, no vomiting, tremors that can be felt but not seen, and mild anxiety with ciwa score of: 3. 1300 assessment patient presented with: mild nausea, no vomiting, fine tremors, mild sweats, and anxiety with ciwa score of: 11; 1700 assessment patient presented with; fine tremors, sweats, and anxiety with ciwa score of: 10. Detox medication effective at reducing withdrawal symptoms. Patient encouraged adequate PO fluid intake as tolerated, Encouraged to attend group therapies/sessions to learn new coping skills to prevent relapse. denies any SI/HI. Patient administered no PRNs during shift. Patients safety measures are in place. all needs met and rendered. Patient endorsement report given to streetcar conductor nurse, all pertinent information discussed. Safety measurers in place. will continue to monitor.
--- NOTE | 2017-07-29 19:15 | NUR ---
START OF SHIFT Patient is a 32-year-old female admitted on 07/29/17 for ETOH dependence. Past medical history of anxiety and depression, history of nephrolithiasis and insomnia. Patient is FULL code, NKA, and on regular diet. Patient is currently on an Ativan taper, tolerating well. Upon assessment, patient is alert and oriented x4, reports mild sweats and chills. She states she did not attend group today but she feels better than earlier in the day. Patients respirations are even and unlabored, no SOB or signs of distress. Patient is on fall and seizure precautions. Patients bed locked in low position, side rails up x2, call light within reach. Will continue to monitor.
[2017-07-29 20:00] VITALS: BP 136/96
[2017-07-29] MEDS: TRAZODONE 100 MG TABLET PO SCH (21:49)
[2017-07-30] VITALS: BP 119/82
--- NOTE | 2017-07-30 | NUR ---
MIDNIGHT VITALS REFUSED, CIWA DEFERRED Patient refused midnight vitals signs, respirations are 16/min, even and unlabored. CIWA deferred due to patient asleep; to be assessed/scored while patient is awake per unit protocol. Safety measures in place, bed locked in low position, side rails up x2, call light within reach. Will continue to monitor. Addendum: 07/30/17 at 0529 by WANDER BYRNES LVN MIDNIGHT VITALS WERE TAKEN AND RECORDED.
[2017-07-30 04:00] VITALS: BP 106/71
--- NOTE | 2017-07-30 04:00 | NUR ---
CIWA DEFERRED Patient's respirations are 16/min, even and unlabored. CIWA deferred due to patient asleep; to be assessed/scored while patient is awake per unit protocol. Safety measures in place, bed locked in low position, side rails up x2, call light within reach. Will continue to monitor.
--- NOTE | 2017-07-30 07:05 | NUR ---
END OF SHIFT Patient is a 32-year-old female admitted on 07/29/17 for ETOH dependence. Past medical history of anxiety and depression, history of nephrolithiasis and insomnia. Patient is FULL code, NKA, and on regular diet. Patient is currently on an Ativan taper, tolerating well. Patient slept for 9 hours, total intake 500 mL, void x1, stool x0. Patient received no PRNs. Last CIWA score was 9. Patient is on fall and seizure precautions. Safety measures in place, patients bed locked in low position, side rails up x2, call light within reach. Will endorse to day shift.
--- NOTE | 2017-07-30 07:06 | NUR ---
Start of Shift Notes: Received patient in her room. Alert and oriented x 4. Verbally responsive. Able to make needs known. Respirations even and unlabored. No SOB noted. Skin warm and dry to touch. Abdomen soft and non-distended with (+) BS in all 4 quadrants. No complains of N/V/D or constipation noted. Bladder non-distended. Voids independently. Patient is a 32 year old female admitted for ETOH dependence who was placed on a 5-day Ativan taper as ordered. No adverse reactions noted. Has past medical hx of anxiety, depression. NKA. FULL CODE. Regular diet. On fall and seizure precautions. Educated patient on the current plan of care for the day and her medication regimen. Encouraged oral fluid intake and encouraged group participation to learn new skills to prevent relapse. Will continue to monitor.
[2017-07-30 08:00] VITALS: BP 120/86
[2017-07-30] MEDS: LORAZEPAM 1 MG TABLET PO SCH ×2 (08:19→14:17)
[2017-07-30] MEDS: VENLAFAXINE XR 75 MG CAP.SR.24H PO SCH (08:19)
[2017-07-30] MEDS: ESCITALOPRAM OXALATE 10 MG TABLET PO SCH (08:19)
[2017-07-30] MEDS: FOLIC ACID 1 MG TABLET PO SCH (08:19)
[2017-07-30] MEDS: GABAPENTIN 300 MG CAPSULE PO SCH ×3 (08:19→20:40)
[2017-07-30] MEDS: MULTIVITAMINS,THERAPEUTIC TABLET PO SCH (08:19)
[2017-07-30] MEDS: THIAMINE HCL 100 MG TABLET PO SCH (08:19)
[2017-07-30] MEDS ORDERED: TUBERCULIN,PURIF.PROT.DERIV. 5 TU/0.1 ML TEST ID ONE (09:00)
--- NOTE | 2017-07-30 09:05 | NUR ---
TB test not administered: Patient refused TB test at 0900. Education provided regarding risk and benefits. Patient still strongly refused and states "No, thank you. I've had 7 done on me this year and they were all negative." Will continue to encourage the patient.
[2017-07-30 09:12] LABS: HEPATITIS B SURFACE AG Negative (Negative)
[2017-07-30 12:00] VITALS: BP 106/71
[2017-07-30 16:00] VITALS: BP 118/84
--- NOTE | 2017-07-30 19:02 | NUR ---
End of Shift Notes: Patient continues to be on 5-day Ativan taper as ordered. No adverse reactions noted. VS monitored closely. No significant abnormalities noted. Withdrawal symptoms were closely monitored. Initial CIWA 8, patient presented with sweats, anxiety, tremors, fatigue. No AV hallucinations noted. Last CIWA 3. Per patient, Ativan has been effective in reducing her withdrawal symptoms. Patient refused TB test. MD aware. Encouraged to attend group and activities. Compliant with care and treatment. All needs met and attended. Will continue to monitor closely.
--- NOTE | 2017-07-30 19:10 | NUR ---
Start of shift note Received report from day shift nurse. Pt is a 32 yo female, A+Ox4, presenting to [facility] for ETOH dependence. Pt has NKA, is on Full code status, and on Regular diet. Pt is on Fall and Seizure precautions. Pt has HX of Anxiety and depression. Pt is on 5 day Ativan taper tolerated well. No s/s of distress noted at this time. Respirations even and unlabored. Will continue to monitor.
[2017-07-30 20:11] VITALS: BP 131/92
[2017-07-30] MEDS: CLONIDINE HCL 0.1 MG TABLET PO SCH (20:40)
[2017-07-30] MEDS ORDERED: LORAZEPAM 1 MG TABLET PO SCH (21:00)
--- NOTE | 2017-07-30 22:55 | NUR ---
PRN MOM ADMINISTRATION PATIENT STATES MIRALAX INEFFECTIVE, NO BM AT THIS TIME. PRN MOM GIVEN. WILL MONITOR FOR EFFECTIVENESS Addendum: 08/01/17 at 0349 by SERENA MILLER LVN ERROR: TIME CHARTING
[2017-07-30] MEDS: TRAZODONE 100 MG TABLET PO SCH (22:57)
[2017-07-31 00:18] VITALS: BP 124/72
[2017-07-31 04:26] VITALS: BP 122/73
--- NOTE | 2017-07-31 07:00 | NUR ---
End of shift note Pt is a 32 yo female, A+Ox4, presenting to [facility] for ETOH dependence. Pt has NKA, is on Full code status, and on Regular diet. Pt is on Fall and Seizure precautions. Pt has HX of Anxiety and depression. Pt is on 5 day Ativan taper tolerated well. Pt slept for a total of 8 HRS. Last CIWA: 3 @0400. No s/s of distress noted at this time. Respirations even and unlabored. Will endorse to day shift nurse.
--- NOTE | 2017-07-31 07:15 | NUR ---
Start of Shift Endorsement received from nightshift nurse. Pt is a 32 y/o female admitted for alcohol dependence. Pt has been placed on a modified Ativan taper. Pt is tolerating the taper and mildly withdrawing AEB CIWA 3. Pt reports sleeping 8 hours. PT did not receive any PRN medications. VS WNL. Full Code. PT is alert and oriented x4. Pt is in STABLE condition at this time. Remains compliant with medication and diet regimen. All needs have been met, All safety measures in place per hospital policy. Bed in lowest position, side rails up x2, call-light within reach. Will continue to monitor
[2017-07-31 08:00] VITALS: BP 113/93
[2017-07-31] MEDS: LORAZEPAM 1 MG TABLET PO SCH ×2 (08:45→20:10)
[2017-07-31] MEDS: THIAMINE HCL 100 MG TABLET PO SCH (08:45)
[2017-07-31] MEDS: FOLIC ACID 1 MG TABLET PO SCH (08:45)
[2017-07-31] MEDS: VENLAFAXINE XR 75 MG CAP.SR.24H PO SCH (08:45)
[2017-07-31] MEDS: MULTIVITAMINS,THERAPEUTIC TABLET PO SCH (08:45)
[2017-07-31] MEDS: GABAPENTIN 300 MG CAPSULE PO SCH ×3 (08:45→20:08)
[2017-07-31] MEDS: ESCITALOPRAM OXALATE 10 MG TABLET PO SCH ×2 (08:47→15:20)
[2017-07-31 12:00] VITALS: BP 105/80
--- NOTE | 2017-07-31 13:59 | NUR ---
Therapist prompted client to come into group, Client agreed to attend today.
[2017-07-31 16:00] VITALS: BP 115/72
--- NOTE | 2017-07-31 19:17 | NUR ---
End of Shift Endorsement given to nightshift nurse. Pt is a 32 y/o female admitted for alcohol dependence. Pt has been placed on a modified Ativan taper. Pt is tolerating the taper and mildly withdrawing AEB CIWA 3. Pt participated in groups and activities. Educated pt on diet and medication regimen. Pt received PRN Miralax. Intake: 3250ml, Void x4, BM x0. VS WNL. Full Code. PT is alert and oriented x4. Pt is in STABLE condition at this time. Remains compliant with medication and diet regimen. All needs have been met, All safety measures in place per hospital policy. Bed in lowest position, side rails up x2, call-light within reach. Will continue to monitor
[2017-07-31 20:00] VITALS: BP 117/82
--- NOTE | 2017-07-31 20:00 | NUR ---
START OF SHIFT NOTE RECEIVED REPORT FROM DAY SHIFT NURSE. PATIENT IS A 32 YEAR OLD FEMALE ADMITTED FOR ETOH DEPENDENCE. CONTINUE ON ATIVAN TAPER, TOLERATED WELL AND NO ADVERSE REACTION. PATIENT WAS GIVEN PRN MIRALAX. LAST CIWA 3. PATIENT COMPLIANT WITH MEDICATION AND TREATMENT PLAN. RECEIVED PATIENT ALERT AND ORIENTED X 4. RESPIRATION EVEN AND UNLABORED. PATIENT REPORTS ANXIETY , SWEATING AND NOTED FINE TREMORS. ON FALL/SEIZURE PRECAUTION. SAFETY MEASURES IN PLACE. CALL LIGHT IN REACH. WILL CONTINUE TO MONITOR.
[2017-07-31] MEDS: CLONIDINE HCL 0.1 MG TABLET PO SCH (20:09)
[2017-07-31] MEDS: TRAZODONE 100 MG TABLET PO SCH (20:09)
--- NOTE | 2017-07-31 22:55 | NUR ---
PRN MOM ADMINISTRATION PATIENT STATES MIRALAX INEFFECTIVE, NO BM AT THIS TIME. PRN MOM GIVEN. WILL MONITOR FOR EFFECTIVENESS
[2017-08-01] VITALS: BP 113/81
--- NOTE | 2017-08-01 | NUR ---
CIWA DEFERRED PATIENT SLEEPING. CIWA DEFERRED. VS REFUSED. RESPIRATION EVEN AND UNLABORED. SAFETY MEASURES IN PLACE. CALL LIGHT IN REACH. WILL CONTINUE TO MONITOR.
--- NOTE | 2017-08-01 04:00 | NUR ---
CIWA DEFERRED PATIENT SLEEPING. CIWA DEFERRED. VS REFUSED. RESPIRATION EVEN AND UNLABORED. SAFETY MEASURES IN PLACE. CALL LIGHT IN REACH. WILL CONTINUE TO MONITOR.
--- NOTE | 2017-08-01 07:07 | NUR ---
END OF SHIFT NOTE/MOM RE-ASSESSMENT PATIENT IS A 32 YEAR OLD FEMALE ADMITTED FOR ETOH DEPENDENCE. CONTINUE ON ATIVAN TAPER, TOLERATED WELL AND NO ADVERSE REACTION. PATIENT COMPLIANT WITH MEDICATION AND TREATMENT PLAN. PATIENT ATTENDS GROUPS , EATING AND DRINKING FLUIDS WELL. ON FALL/SEIZURE PRECAUTION. PATIENT WAS GIVEN PRN MOM, INEFFECTIVE, NO BM DURING SHIFT. ENDORSED TO NEXT SHIFT. ENCOURAGE FLUIDS. SAFETY MEASURES IN PLACE. CALL LIGHT IN REACH. WILL CONTINUE TO MONITOR. SLEPT 7 HOURS. FLUID INTAKE 500 ML. VOIDED XM 1. NO BM. LAST CIWA 3.
--- NOTE | 2017-08-01 07:30 | NUR ---
START OF SHIFT Pt 32 y/o female admitted for etoh dependence. Pt received in room awake standing. Pt alert and oriented to name, place, and time. Perrla. Skin warm and dry to touch. Respirations even and unlabored. Bilateral hand tremors noted slightly. Pt slightly anxious this morning, with pressured speech noted. It was reported that pt slept for 7 hours last night. Bed on lowest position with side rails x2 up for safety. Call light within reach. No distress noted at this time.
[2017-08-01 08:00] VITALS: BP 116/81
--- NOTE | 2017-08-01 08:30 | NUR ---
ENDORSED Pt endorsed to nurse. All information given. No distress noted at this time.
--- NOTE | 2017-08-01 08:31 | NUR ---
Assumed Care: Assumed care for the patient at this time. Patient is a 32 year old female admitted for ETOH dependence who was placed on a 5-day Ativan taper as ordered. No adverse reactions noted. Has past medical hx of anxiety, depression. NKA. FULL CODE. Regular diet. On fall and seizure precautions. Educated patient on the current plan of care for the day and her medication regimen. Encouraged oral fluid intake and encouraged group participation to learn new skills to prevent relapse. Will continue to monitor.
[2017-08-01] MEDS: THIAMINE HCL 100 MG TABLET PO SCH (08:54)
[2017-08-01] MEDS: GABAPENTIN 300 MG CAPSULE PO SCH ×3 (08:54→20:10)
[2017-08-01] MEDS: VENLAFAXINE XR 75 MG CAP.SR.24H PO SCH (08:54)
[2017-08-01] MEDS: ESCITALOPRAM OXALATE 10 MG TABLET PO SCH (08:54)
[2017-08-01] MEDS: FOLIC ACID 1 MG TABLET PO SCH (08:54)
[2017-08-01] MEDS: MULTIVITAMINS,THERAPEUTIC TABLET PO SCH (08:54)
[2017-08-01] MEDS ORDERED: LORAZEPAM 1 MG TABLET PO SCH (09:00)
[2017-08-01 12:00] VITALS: BP 126/91
[2017-08-01] MEDS ORDERED: PROPRANOLOL HCL 20 MG TABLET PO SCH (15:00)
[2017-08-01 16:00] VITALS: BP 119/85
--- NOTE | 2017-08-01 17:22 | NUR ---
therapist prompted client to attend group today.
--- NOTE | 2017-08-01 18:47 | NUR ---
End of Shift Notes: Patient completed her 5-day Ativan taper as ordered. No adverse reactions noted. VS monitored closely. No significant abnormalities noted. Withdrawal symptoms were closely monitored. Initial CIWA 4, patient presented with anxiety, mild tremors and mild agitation. No AV hallucinations noted. Last CIWA 2. Per patient, Ativan has been effective in reducing her withdrawal symptoms. Has discharge plans tomorrow. Participated in group and activities. Compliant with care and treatment. All needs met and attended. Will continue to monitor closely.
--- NOTE | 2017-08-01 19:30 | NUR ---
START OF SHIFT Pt is a 32 y/o female admitted on 07/29/17 for ETOH dependence. Pt was dependent on 750 ml of vodka for 1 week after relapse. Pt is full code, NKA, regular diet and on fall/seizure precautions. No reported seizure hx. Pt reports PMH of anxiety, depression and insomnia. Pt was on a 4 day Ativan taper that started 07/29/17, tolerated well. Pt is scheduled to be discharged tomorrow. Last CIWA 2 during day shift and no PRNS administered. Upon assessment pt presents with anxiety, restlessness, agitation, difficulty sleeping, intermittent headache, dysphoria and anhedonia. Respirations 16, even and unlabored. Denies N/V/D. Denies chest pain or SOB. Medications due. Safety measures in place.
[2017-08-01] MEDS ORDERED: DIPH50CA37 PO (19:31)
[2017-08-01] MEDS ORDERED: GABA-534 PO (19:31)
[2017-08-01] MEDS ORDERED: TRAZ-147 PO (19:31)
[2017-08-01] MEDS ORDERED: PROP20TA22 PO (19:31)
[2017-08-01] MEDS ORDERED: HYDR-3895 PO (19:31)
[2017-08-01] MEDS ORDERED: VENL75CA56 PO (19:31)
[2017-08-01 20:00] VITALS: BP 122/94
--- NOTE | 2017-08-01 20:09 | NUR ---
PRN CLONIDINE ADMINISTRATION BP 122/94, orders to give if BP > 140/90. HR 92. Safety measures in place. Call light within reach. Will continue to monitor.
[2017-08-01] MEDS: PROPRANOLOL HCL 20 MG TABLET PO SCH (20:10)
[2017-08-01 21:09] VITALS: BP 111/74
--- NOTE | 2017-08-01 21:09 | NUR ---
PRN CLONIDINE REASSESSMENT BP 111/74 and HR 81, Clonidine effective in reducing BP. Safety measures in place. Call light within reach. Will continue to monitor.
[2017-08-01] MEDS: TRAZODONE 100 MG TABLET PO SCH (21:49)
--- NOTE | 2017-08-02 | NUR ---
CIWA DEFERRED AND VITALS REFUSED Pt is laying in bed with eyes closed, CIWA deferred, to be assessed when pt is awake per orders. Vitals refused. Respirations 16, even and unlabored. Safety measures in place. Call light within reach. Will continue to monitor.
--- NOTE | 2017-08-02 05:55 | NUR ---
PRN MOTRIN 400 MG ADMINISTRATION Pt reports pain from her toenail that "came off" 01/09. Safety measures in place. Will continue to monitor.
--- NOTE | 2017-08-02 06:55 | NUR ---
PRN MOTRIN REASSESSMENT Pt reports pain for toenail improved to tolerable level.
--- NOTE | 2017-08-02 07:05 | NUR ---
END OF SHIFT Pt is a 32 y/o female admitted on 07/29/17 for ETOH dependence. Pt was dependent on 750 ml of vodka for 1 week after a relapse. Pt is full code, NKA, regular diet and on fall/seizure precautions. No reported seizure hx. Pt reports PMH of anxiety, depression and insomnia. Pt finished a 4 day Ativan taper and is scheduled to be discharged today at 0730. Home medications and makeup bag from cabinet provided. Discharge paperwork signed. Pt presented with anxiety, restlessness, agitation, difficulty sleeping, intermittent headache, dysphoria and anhedonia. Scheduled medications and PRN Clonidine administered, effective in S/S of withdrawal as verbalized by pt. Last CIWA 2 at 1999. Pt slept 8 hours. Intake 500 ml, void x 2, stool x 0. Safety measures in place. Call light within reach. Pts needs have been met. Endorsed to day shift nurse.
[2017-08-02 07:41] VITALS: BP 125/74
[2017-08-02] MEDS: FOLIC ACID 1 MG TABLET PO SCH (07:41)
[2017-08-02] MEDS: THIAMINE HCL 100 MG TABLET PO SCH (07:41)
[2017-08-02] MEDS: MULTIVITAMINS,THERAPEUTIC TABLET PO SCH (07:41)
[2017-08-02] MEDS: PROPRANOLOL HCL 20 MG TABLET PO SCH (07:41)
[2017-08-02] MEDS: GABAPENTIN 300 MG CAPSULE PO SCH (07:42)
--- NOTE | 2017-08-02 07:55 | NUR ---
D/C NOTE Pt is A/O x4. V/S remain WNL. Pt denies SI/HI or hallucinations. Pt shows no s/s of acute withdrawal at this time, and is stable. has medically cleared pt for d/c . Education on Hepatitis C, smoking cessation and medication side effects provided. Pt verbalizes understanding. All pt belongings are in belonging bag. Refuses PNU vaccination. Pt is being accompanied by [employer] at this time to be transported to rehab. All needs met.
[2017-08-02] MEDS ORDERED: ESCITALOPRAM OXALATE 10 MG TABLET PO SCH (09:00)
[2017-08-02] MEDS ORDERED: VENLAFAXINE XR 75 MG CAP.SR.24H PO SCH (09:00)
== END 2017-08-02 07:55 | disposition home or self-care (01) | DRG 895 ==
LOC: SRC 01:24
PROVIDERS: ADMIT Internal Medicine; ATTEND Internal Medicine
PROC: HZ2ZZZZ Detoxification Services for Substance Abuse Treatment (ICD-10-PCS; principal; 2017-07-29)
PROC: HZ41ZZZ Group Counseling for Substance Abuse Treatment, Behavioral (ICD-10-PCS; 2017-07-30)
DX: F10.230 Alcohol dependence with withdrawal, uncomplicated (principal); I15.9 Secondary hypertension, unspecified; E87.6 Hypokalemia; F17.210 Nicotine dependence, cigarettes, uncomplicated; F41.9 Anxiety disorder, unspecified; Y90.9 Presence of alcohol in blood, level not specified; G47.00 Insomnia, unspecified; Z87.442 Personal history of urinary calculi; Z81.8 Family history of other mental and behavioral disorders
CPT/HCPCS: 36415; 70030-TC; 80307; 83690; 83735; 84443; 84703; 85025; 86592; 86705; 86803; 87340; 87806; G0480; J3411; Q0163

== ENCOUNTER 2017-08-13 19:02 | Inpatient (IN) | payer OTHER ==
[~2017-08-13] VITALS: Ht 167.6 cm; Wt 54.4 kg
[~2017-08-13 19:02] MED LIST changes: -AZIT250T6 PO; -CLON0.1T14 PO; +DIPH50CA37 PO; -ESCI10TA PO; -IBUP-1953 PO; +PROP20TA22 PO; +TRAZ-147 PO; -TRAZ300T2 PO; +VENL75CA56 PO
[2017-08-13] MEDS ORDERED: LORAZEPAM 1 MG TABLET PO PRN ×2 (22:30)
[2017-08-13] MEDS ORDERED: NICOTINE POLACRILEX 4 MG GUM-PK OF TEN BC PRN (22:30)
[2017-08-13] MEDS ORDERED: IBUPROFEN 400 MG TABLET PO PRN (22:30)
[2017-08-13] MEDS ORDERED: ACETAMINOPHEN 325 MG TABLET PO PRN (22:30)
[2017-08-13] MEDS ORDERED: hydrALAZINE HCL 50 MG TABLET PO PRN (22:30)
[2017-08-13] MEDS ORDERED: diphenhydrAMINE 50 MG CAPSULE PO PRN (22:30)
[2017-08-13] MEDS ORDERED: NICOTINE 14 MG/24HR PATCH TD PRN (22:30)
[2017-08-13] MEDS ORDERED: DICYCLOMINE HCL 20 MG TABLET PO PRN (22:30)
[2017-08-13] MEDS ORDERED: ONDANSETRON 4 MG/2 ML VIAL IM PRN (22:30)
[2017-08-13] MEDS ORDERED: LORAZEPAM 2 MG/1 ML VIAL IM PRN (22:30)
[2017-08-13] MEDS ORDERED: MIRALAX 17 GM POWD.PACK PO PRN (22:30)
[2017-08-13] MEDS ORDERED: THIAMINE HCL 200 MG/2 ML VIAL IM ONE (22:30)
[2017-08-13] MEDS ORDERED: LOPERAMIDE HCL 2 MG CAPSULE PO PRN ×2 (22:30)
[2017-08-13] MEDS ORDERED: MAGNESIUM HYDROXIDE 30 ML LIQUID UDC PO PRN (22:30)
[2017-08-13] MEDS ORDERED: ONDANSETRON ODT 4 MG TAB.RAPDIS SL PRN (22:30)
[2017-08-13] MEDS ORDERED: MAG HYDROX/AL HYDROX/SIMETH 30 ML LIQUID UDC PO PRN (22:30)
--- NOTE | 2017-08-13 22:35 | NUR ---
PRE - ADMISSION Patient is a 32 year old female presented to [facility] for Alcohol dependence. Patient is ambulatory with steady gate, stable, A&Ox4, speech is clear. Patient is cooperative. CIWA 7: Patient appears anxious, nervous, with tremors, and flushed face. Patient reports NKA. VS: T: 98.4, BP: 114/73, HR: 98, RA SPO2 97%. RR: 19. Patient denies any pain at this time. Patient instructed on unit protocol of vitals Q4H and COWS/CIWA assessments. Patient verbalized understanding and agreement. Patient also instructed on policy regarding destruction of any controlled substances/prescriptions brought to facility, and handling of all medications. Patient verbalized understanding and agreement. Will complete admission assessment when patient is brought up to unit.
[2017-08-13 22:42] VITALS: BP 114/73
--- NOTE | 2017-08-13 22:42 | NUR ---
ADMISSION NOTE: Patient is a 32 year old female admitted to [facility] on 08/13/2017 @2242 for medically supervised withdrawal from Alcohol. Patient reports NKA. Patient is on Full Code, Regular diet, is on Fall and Seizures precautions. The patient denies a history of withdrawal-induced seizures. Past Medical History: Anxiety, Depression. Patient denies Past Surgical History. Patient can't recalled the name of PCP. Pre-assessment completed in intake. Patient provided UDS test at this time. Patient is alert and orientedx4, ambulatory with steady gate, speech is clear and soft. Height: 63 in, Weight: 120 lbs by standing scale. VS upon admission: T: 98.4, BP: 114/73, HR: 98, RA SPO2 97%. RR: 19. Patient denies any pain at this time. CIWA 7. The patient presented with anxiety, agitation, nervousness, tremors, sweating, restlessness, and fatigue. Patient denies SI/HI at this time. Respirations unlabored and even. Patient denies cough, SOB and chest pain. Lungs Sounds are clear bilaterally. Bowel Sounds active in all x4 quadrants. Abdomen is soft and non-tender. PERRLA, brisk capillary refill, municipal firefighter equal and strong. Skin is intact, warm and dry to touch. Patient reports the following Substances Use: Alcohol PO "started used in 2006 ". Patient reports "consuming Vodka 750 ml three times a week during last month". Last used "Vodka 350 ml on 08/13/2017 @2000". She has been to multiple treatment programs in the past, the latest being at "[facility] in 06/2017 to 07/2017". Patient reports the longest being "45 days of sobriety but relapsed today". Patient reports "Tobacco use since 1998 every day 1 pack = 20 cigarettes". Patient did not brought medications. Patient reports "did not used any medications last month". Patient oriented to her room, Nurse Call Light, and [facility] Floor. Encouraged fluids as tolerated. Encouraged to attend activities groups. All needs met. Safety measures on place. Call light within reach, bed in lowest position and locked, padded rails up bilaterally. Will continue to monitor closely.
[2017-08-13] MEDS ORDERED: TRAZODONE 100 MG TABLET PO ONE (23:15)
--- NOTE | 2017-08-13 23:24 | NUR ---
PRN TRAZODONE 300 MG 3 TAB PO ADMINISTRATION Patient c/o insomnia. PRN Trazodone 300 mg 3 tab. PO administrated with full glass of water as ordered. Patient tolerated well. All needs met. Safety measures on place. Call light within reach, bed in lowest position and locked, padded rails up bilaterally. Will continue to monitor closely.
[2017-08-13 23:53] LABS: *URINE HCG, QUAL NEGATIVE (NEGATIVE)
[2017-08-13 23:56] LABS: BASOPHILS % (AUTO) 0.4 % (0.0-2.0); EOSINOPHILS # (AUTO) 0.1 K/uL (0.0-0.7); EOSINOPHILS % (AUTO) 1.2 % (0.0-7.0); HEMATOCRIT 39.3 % (31.2-41.9); HEMOGLOBIN 13.6 g/dL (10.9-14.3); LYMPHOCYTES # (AUTO) 3.1 K/uL (20.0-40.0); LYMPHOCYTES % (AUTO) 39.8 % (20.5-51.5); MEAN CORPUSCULAR HEMOGLOBIN 34.1 uug (24.7-32.8); MEAN CORPUSCULAR HGB CONC 35 g/dL (32.3-35.6); MEAN CORPUSCULAR VOLUME 98.7 fL (75.5-95.3); MONOCYTES # (AUTO) 0.4 K/uL (2.0-10.0); MONOCYTES % (AUTO) 4.8 % (0.0-11.0); NEUTROPHILS # (AUTO) 4.3 K/uL (1.8-8.9); NEUTROPHILS % (AUTO) 53.8 % (38.5-71.5); PLATELET COUNT (AUTO) 311 K/uL (179-408); RED BLOOD CELL COUNT(AUTO) 3.98 MIL/uL (3.63-4.92); WHITE BLOOD COUNT (AUTO) 7.9 K/uL (3.8-11.8)
[2017-08-14] VITALS (8 sets, daily range): BP systolic 93–155; BP diastolic 61–98
[2017-08-14 00:01] LABS: *AMPHETAMINE, URINE NEGATIVE (NEGATIVE); *BARBITURATE, URINE NEGATIVE (NEGATIVE); *CANNABINOID, URINE NEGATIVE (NEGATIVE); *COCCAINE, URINE NEGATIVE (NEGATIVE); *OPIATE, URINE NEGATIVE (NEGATIVE); *PHENCYCLIDINE SCREEN,URINE NEGATIVE (NEGATIVE)
[2017-08-14 00:24] LABS: BILIRUBIN,TOTAL 0.2 mg/dL (0.2-1.0); CREATININE 0.9 mg/dL (0.6-1.3); MAGNESIUM 2.1 mg/dL (1.8-2.4); POTASSIUM 3.1 mmol/L (3.5-5.1); TOTAL PROTEIN, SERUM 6.5 g/dL (6.4-8.2)
--- NOTE | 2017-08-14 00:24 | NUR ---
RE-ASSESSMENT Patient is sleeping. Respirations even and unlabored. RR:16. PRN Trazodone 300 mg 3 tab. PO administrated for insomnia @2324 was effective. All needs met. Safety measures on place. Call light within reach, bed in lowest position and locked, padded rails up bilaterally rails up bilaterally. Will continue to monitor closely.
[2017-08-14] MEDS ORDERED: POTASSIUM CHLORIDE 20 MEQ TAB.PRT.SR PO ONE (02:00)
[2017-08-14] MEDS ORDERED: POTASSIUM CHLORIDE 20 MEQ TAB.PRT.SR ONE (02:13)
[2017-08-14] MEDS ORDERED: BENZ68FO TP (03:06)
--- NOTE | 2017-08-14 07:20 | NUR ---
END OF SHIFT Patient is a 32 year old female admitted to [facility] on 08/13/2017 for medically supervised withdrawal from Alcohol. Patient reports NKA, is on Full Code, Regular Diet, is on Fall and Seizures Precautions. Patient denies a history of withdrawal-induced seizures. Patient reports "drinking Vodka 750 mL x3 week during last month. Last used 350 ml on 08/13/2017 @2000". The longest of sobriety being 45 days but relapsed one month ago. PMH: Anxiety, Depression. Last CIWA 5 @0400. COWS/CIWA taken when patient's awake during night. VS: BP 125/85, HR 87, T 97.9, RR 19, RA O2Sat 98, pain level "0/10". Patient denies SI/HI. Respirations unlabored and even. Skin is intact, warm and dry to touch. PRN Trazodone PO administrated for insomnia @2324 was effective. Patient remains compliant with medications. Patient slept 4 hours, intake 700 ml, voided x1. Encouraged fluids intake as tolerated. Encouraged to attend groups activities. All needs met. Safety measures on place. Call light within reach, bed in lowest position and locked, padded rails up bilaterally. Patient endorsed to day shift nurse. Report given.
--- NOTE | 2017-08-14 07:35 | NUR ---
START OF SHIFT Received report from mold shifter nurse. Pt is lying in bed resting with eyes closed and easily arousable. She is a 32 yo female admitted to [facility] on 08/13 for ETOH dependence. She is A&O and ambulatory. NKA, full code status, on a regular diet. PMH of anxiety and depression. On admission she reported drinking vodka 750mL 3x/week. 4 day Ativan taper starts today. Pt reports anxiety, sweating, and is observed with tremors. Fall and seizure precautions in place. Bed is down with call light in reach.
[2017-08-14] MEDS ORDERED: TUBERCULIN,PURIF.PROT.DERIV. 5 TU/0.1 ML TEST ID ONE (09:00)
[2017-08-14] MEDS ORDERED: ESCI10TA PO (09:43)
[2017-08-14] MEDS: FOLIC ACID 1 MG TABLET PO SCH (09:52)
[2017-08-14] MEDS: LORAZEPAM 1 MG TABLET PO SCH ×3 (09:52→20:00)
[2017-08-14] MEDS: MULTIVITAMINS,THERAPEUTIC TABLET PO SCH (09:52)
[2017-08-14] MEDS: THIAMINE HCL 100 MG TABLET PO SCH (09:52)
[2017-08-14] MEDS: GABAPENTIN 300 MG CAPSULE PO SCH ×3 (09:52→20:00)
[2017-08-14] MEDS: VENLAFAXINE XR 75 MG CAP.SR.24H PO SCH (10:50)
[2017-08-14] MEDS: ESCITALOPRAM OXALATE 10 MG TABLET PO SCH (10:50)
--- NOTE | 2017-08-14 17:30 | NUR ---
PRN Hydralazine and Ativan Pt's B/P 155/98 and HR 117. She reports feeling anxious and is observed with hand tremors. CIWA score 8. PRN Hydralazine and Ativan administered.
--- NOTE | 2017-08-14 18:45 | NUR ---
PRN Hydralazine and Ativan reassessment PRN Hydralazine and Ativan somewhat effective. Pt reports feeling slightly less anxious. B/P 134/89 but HR increased to 136. Pt states she is anxious and "dealing with a lot of emotional issues right now". Contacted Dr. Cody. New orders to be placed. Addendum: 08/14/17 at 1913 by RAMON OVERTON RN KYLE Choudhury.
--- NOTE | 2017-08-14 19:05 | NUR ---
Start of shift Patient Received. Patient is in activities room participating in a group meeting. Patient is a 32 year old female admitted on 08/13/17 for ETOH Dependence under the care of Dr. Cody. Patient is currently receiving a 4 day Ativan taper. No Known Allergies, wishes to be full code, following a regular diet, placed on fall and seizure precautions, and skin noted intact. Past medical history noted as Anxiety and Depression. Per endorsement, patient was given PRN Hydralazine with medication noted to be not effective. New order obtained for Propranolol to be given at 2100. Last noted CIWA 7. All needs attended to promptly. Will continue plan of care as ordered.
--- NOTE | 2017-08-14 19:16 | NUR ---
END OF SHIFT Report provided to awake overnight monitor nurse. Pt is in her room watching TV. She is a 32 yo female admitted to [facility] on 08/13 for ETOH dependence. She is A&O and ambulatory. NKA, full code status, on a regular diet. PMH of anxiety and depression. On admission she reported drinking vodka 750mL 3x/week. 4 day Ativan taper started today. Pt had elevated B/P, HR, and anxiety. PRN Hydralazine and Ativan 1mg administered and only mildly effective. B/P decreased but her HR increased. New orders placed by Dr. Cody. Last CIWA 7. She drank 1350. Fall and seizure precautions in place. Bed is down with call light in reach.
[2017-08-14] MEDS: PROPRANOLOL HCL 20 MG TABLET PO SCH (20:00)
[2017-08-14] MEDS ORDERED: TRAZODONE 100 MG TABLET PO SCH (21:00)
[2017-08-15 00:15] VITALS: BP 115/83
--- NOTE | 2017-08-15 00:34 | NUR ---
PRN Medication Administration Patient noted awake and verbalizing inability of staying asleep despite receiving PRN Trazodone. PRN Benadryl administered as per order. Will continue to monitor.
--- NOTE | 2017-08-15 01:30 | NUR ---
PRN Medication Reassessment Patient noted awake and intermittently going out for smoking breaks despite being given PRN Benadryl. Patient verbalized "I know Im not going to sleep tonight. Ill just lay her and try and fall asleep." Will endorse to morning shift for MD to review Medications.
[2017-08-15 04:25] VITALS: BP 129/89
--- NOTE | 2017-08-15 07:22 | NUR ---
End of Shift Patient is in bed awake, alert and verbally responsive. Breathing even and non labored. Patient is a 32 year old female admitted on 08/13/17 for ETOH Dependence under the care of Dr. Cody. Patient is currently receiving a 4 day Ativan taper. No Known Allergies, Full Code, Regular Diet, placed on fall and seizure precautions, and skin noted intact. Past medical history noted as Anxiety and Depression. Patient received PRN Benadryl for inability of falling asleep with medication noted to be not effective. Will endorse to morning shift to have MD review medications. Last noted CIWA 14. All needs attended to promptly. Will endorse to continue plan of care as ordered.
--- NOTE | 2017-08-15 07:35 | NUR ---
START OF SHIFT 325 Received report from night stocker nurse. Pt is in her room watching TV. She is a 32 yo female admitted to [facility] on 08/13 for ETOH dependence. She is A&O and ambulatory. NKA, full code status, on a regular diet. PMH of anxiety and depression. On admission she reported drinking vodka 750mL 3x/week. 4 day Ativan taper started 08/14. Pt reports anxiety, insomnia, and is observed with tremors. Fall and seizure precautions in place. Bed is down with call light in reach.
[2017-08-15 08:00] VITALS: BP 130/99
[2017-08-15 08:04] LABS: CREATININE 0.8 mg/dL (0.6-1.3); MAGNESIUM 1.8 mg/dL (1.8-2.4); PHOSPHOROUS 2.8 mg/dL (2.5-4.9); POTASSIUM 3.9 mmol/L (3.5-5.1)
[2017-08-15] MEDS: LORAZEPAM 1 MG TABLET PO SCH ×2 (08:07→14:43)
[2017-08-15] MEDS: FOLIC ACID 1 MG TABLET PO SCH (08:08)
[2017-08-15] MEDS: VENLAFAXINE XR 75 MG CAP.SR.24H PO SCH (08:08)
[2017-08-15] MEDS: ESCITALOPRAM OXALATE 10 MG TABLET PO SCH (08:09)
[2017-08-15] MEDS: PROPRANOLOL HCL 20 MG TABLET PO SCH (08:09)
[2017-08-15] MEDS: GABAPENTIN 300 MG CAPSULE PO SCH ×2 (08:10→14:43)
[2017-08-15] MEDS: MULTIVITAMINS,THERAPEUTIC TABLET PO SCH (08:10)
[2017-08-15] MEDS: THIAMINE HCL 100 MG TABLET PO SCH (08:10)
[2017-08-15 10:08] LABS: HEPATITIS B SURFACE AG Negative (Negative)
[2017-08-15 12:00] VITALS: BP 134/96
[2017-08-15] MEDS ORDERED: buPROPion XL 150 MG TAB.SR.24H PO SCH (15:15)
[2017-08-15 16:00] VITALS: BP 123/97
--- NOTE | 2017-08-15 17:40 | NUR ---
AMA NOTE Pt refused to comply with treatment and chose to leave AMA. Pt educated about the risks and consequences of leaving AMA. Pt verbalized understanding but was adamant about leaving. Multiple staff members including doctors, patient advocates, and nurses attempted to reason with pt without any success. Pt was anxious to leave with elevated HR. She was educated again regarding risks and consequences of leaving AMA. Other vitals WNL, skin intact, pt denied any suicidal or homicidal ideations. Pt's psychiatrist and MD were notified and made aware. Pt was given a list of community resources. AMA forms explained and signed. All belongings and medications returned. Pt left facility AMA on 08/14/17 at 1735.
[2017-08-15] MEDS ORDERED: GABAPENTIN 300 MG CAPSULE PO SCH (21:00)
[2017-08-15] MEDS ORDERED: LORAZEPAM 1 MG TABLET PO SCH (21:00)
[2017-08-16] MEDS ORDERED: ESCITALOPRAM OXALATE 10 MG TABLET PO SCH (09:00)
[2017-08-16] MEDS ORDERED: GABAPENTIN 300 MG CAPSULE PO SCH (09:00)
[2017-08-16] MEDS ORDERED: LORAZEPAM 1 MG TABLET PO SCH (09:00)
[2017-08-16] MEDS ORDERED: ARIPIPRAZOLE 2 MG TABLET PO SCH (09:00)
[2017-08-17] MEDS ORDERED: LORAZEPAM 1 MG TABLET PO SCH (09:00)
== END 2017-08-15 19:45 | disposition left against medical advice (07) | DRG 894 ==
LOC: SRC 21:58
PROVIDERS: ADMIT Internal Medicine; ATTEND Internal Medicine
PROC: HZ2ZZZZ Detoxification Services for Substance Abuse Treatment (ICD-10-PCS; principal; 2017-08-13)
PROC: HZ41ZZZ Group Counseling for Substance Abuse Treatment, Behavioral (ICD-10-PCS; 2017-08-14)
DX: F10.230 Alcohol dependence with withdrawal, uncomplicated (principal); F33.2 Major depressive disorder, recurrent severe without psychotic features; I15.9 Secondary hypertension, unspecified; Y90.8 Blood alcohol level of 240 mg/100 ml or more; Z81.1 Family history of alcohol abuse and dependence; F17.210 Nicotine dependence, cigarettes, uncomplicated; G47.00 Insomnia, unspecified; Z87.442 Personal history of urinary calculi; Z59.1 Inadequate housing; Z79.899 Other long term (current) drug therapy; E87.6 Hypokalemia; R73.9 Hyperglycemia, unspecified; F41.9 Anxiety disorder, unspecified
CPT/HCPCS: 36415; 70030-TC; 80307; 83735; 84100; 84703; 85025; 86592; 86705; 86803; 87340; 87806; A4663; G0480; Q0163

== ENCOUNTER 2018-02-08 11:23 | Inpatient (IN) | payer OTHER ==
[~2018-02-08] VITALS: Ht 167.6 cm; Wt 57.2 kg
[2018-02-08] MEDS ORDERED: THIAMINE HCL 200 MG/2 ML VIAL IM ONE ×2 (15:15)
[2018-02-08] MEDS ORDERED: LORAZEPAM 1 MG TABLET PO PRN (15:15)
[2018-02-08] MEDS: LORAZEPAM 1 MG TABLET PO PRN ×4 (15:22→22:14)
[2018-02-08 15:25] LABS: *URINE HCG, QUAL NEGATIVE (NEGATIVE)
[2018-02-08 15:46] LABS: *AMPHETAMINE, URINE NEGATIVE (NEGATIVE); *BARBITURATE, URINE NEGATIVE (NEGATIVE); *CANNABINOID, URINE NEGATIVE (NEGATIVE); *COCCAINE, URINE NEGATIVE (NEGATIVE); *OPIATE, URINE NEGATIVE (NEGATIVE); *PHENCYCLIDINE SCREEN,URINE NEGATIVE (NEGATIVE)
[2018-02-08 16:30] LABS: BASOPHILS % (AUTO) 0.8 % (0.0-2.0); EOSINOPHILS % (AUTO) 0.3 % (0.0-7.0); HEMATOCRIT 40.5 % (31.2-41.9); HEMOGLOBIN 14.2 g/dL (10.9-14.3); LYMPHOCYTES # (AUTO) 1.2 K/uL (20.0-40.0); LYMPHOCYTES % (AUTO) 26.6 % (20.5-51.5); MEAN CORPUSCULAR HEMOGLOBIN 34.6 uug (24.7-32.8); MEAN CORPUSCULAR HGB CONC 35 g/dL (32.3-35.6); MEAN CORPUSCULAR VOLUME 99.1 fL (75.5-95.3); MONOCYTES # (AUTO) 0.3 K/uL (2.0-10.0); MONOCYTES % (AUTO) 7.5 % (0.0-11.0); NEUTROPHILS # (AUTO) 2.9 K/uL (1.8-8.9); NEUTROPHILS % (AUTO) 64.8 % (38.5-71.5); PLATELET COUNT (AUTO) 171 K/uL (179-408); RED BLOOD CELL COUNT(AUTO) 4.09 MIL/uL (3.63-4.92); WHITE BLOOD COUNT (AUTO) 4.5 K/uL (3.8-11.8)
[2018-02-08 16:41] LABS: ETHANOL 289 MG/DL (0-0)
[2018-02-08 16:44] LABS: ALANINE AMINOTRANSFERASE 55 U/L (14-59); ALKALINE PHOSPHATASE 75 U/L (50-136); ASPARTATE AMINOTRANSFERASE 116 U/L (15-37); BILIRUBIN,TOTAL 0.4 mg/dL (0.2-1.0); CARBON DIOXIDE 27 mmol/L (21-32); CHLORIDE 103 mmol/L (98-107); CREATININE 0.5 mg/dL (0.6-1.3); GLUCOSE 89 mg/dL (74-106); POTASSIUM 3.2 mmol/L (3.5-5.1); TOTAL PROTEIN, SERUM 7.1 g/dL (6.4-8.2); UREA NITROGEN, BLOOD 8 mg/dL (7-18)
[2018-02-08] MEDS ORDERED: ACETAMINOPHEN 325 MG TABLET PO PRN (17:45)
[2018-02-08] MEDS ORDERED: MAG HYDROX/AL HYDROX/SIMETH 30 ML LIQUID UDC PO PRN (17:45)
[2018-02-08] MEDS ORDERED: MAGNESIUM HYDROXIDE 30 ML LIQUID UDC PO PRN (17:45)
[2018-02-08] MEDS: ONDANSETRON ODT 4 MG TAB.RAPDIS SL PRN (17:54)
[2018-02-08] MEDS: IBUPROFEN 400 MG TABLET PO PRN (17:54)
[2018-02-08] MEDS ORDERED: POTASSIUM CHLORIDE 20 MEQ TAB.PRT.SR PO ONE (21:00)
[2018-02-08] MEDS: TRAZODONE 100 MG TABLET PO SCH (22:13)
[2018-02-08] MEDS ORDERED: ONDANSETRON 4 MG/2 ML VIAL IM PRN (22:30)
[2018-02-08] MEDS: CLONIDINE HCL 0.1 MG TABLET PO PRN (22:40)
[2018-02-09] VITALS (7 sets, daily range): BP systolic 115–142; BP diastolic 72–103
[2018-02-09] MEDS: LORAZEPAM 1 MG TABLET PO PRN ×2 (00:18→04:25)
[2018-02-09] MEDS ORDERED: LORAZEPAM 1 MG TABLET PO PRN ×2 (07:30)
[2018-02-09] MEDS: ESCITALOPRAM OXALATE 10 MG TABLET PO SCH (08:36)
[2018-02-09] MEDS: THIAMINE HCL 100 MG TABLET PO SCH (08:36)
[2018-02-09] MEDS: MULTIVITAMINS,THERAPEUTIC TABLET PO SCH (08:36)
[2018-02-09] MEDS: GABAPENTIN 300 MG CAPSULE PO SCH ×3 (08:36→21:41)
[2018-02-09] MEDS: FOLIC ACID 1 MG TABLET PO SCH (08:36)
[2018-02-09] MEDS: LORAZEPAM 1 MG TABLET PO SCH ×4 (08:36→21:36)
[2018-02-09] MEDS: ONDANSETRON ODT 4 MG TAB.RAPDIS SL PRN (08:54)
[2018-02-09] MEDS ORDERED: FOLIC ACID 1 MG TABLET PO SCH (09:00)
[2018-02-09] MEDS ORDERED: THIAMINE HCL 100 MG TABLET PO SCH (09:00)
[2018-02-09] MEDS ORDERED: MULTIVITAMINS,THERAPEUTIC TABLET PO SCH (09:00)
[2018-02-09] MEDS ORDERED: TUBERCULIN,PURIF.PROT.DERIV. 5 TU/0.1 ML TEST ID ONE ×2 (09:00)
[2018-02-09] MEDS: CLONIDINE HCL 0.1 MG TABLET PO PRN (17:46)
[2018-02-09] MEDS: TRAZODONE 100 MG TABLET PO SCH (21:00)
[2018-02-10 07:06] LABS: BILIRUBIN,DIRECT 0.3 mg/dL (0.0-0.2); BILIRUBIN,TOTAL 1.1 mg/dL (0.2-1.0); CREATININE 0.9 mg/dL (0.6-1.3); MAGNESIUM 1.8 mg/dL (1.8-2.4); PHOSPHOROUS 4.6 mg/dL (2.5-4.9); POTASSIUM 3.2 mmol/L (3.5-5.1); TOTAL PROTEIN, SERUM 7.2 g/dL (6.4-8.2)
[2018-02-10 08:00] VITALS: BP 91/66
[2018-02-10] MEDS: GABAPENTIN 300 MG CAPSULE PO SCH ×3 (08:32→21:41)
[2018-02-10] MEDS: ESCITALOPRAM OXALATE 10 MG TABLET PO SCH (08:32)
[2018-02-10] MEDS: MULTIVITAMINS,THERAPEUTIC TABLET PO SCH (08:32)
[2018-02-10] MEDS: THIAMINE HCL 100 MG TABLET PO SCH (08:32)
[2018-02-10] MEDS: FOLIC ACID 1 MG TABLET PO SCH (08:32)
[2018-02-10] MEDS: LORAZEPAM 1 MG TABLET PO SCH ×3 (08:32→21:41)
[2018-02-10] MEDS ORDERED: HYDROXYZINE PAMOATE 25 MG CAPSULE PO PRN (11:00)
[2018-02-10 12:08] VITALS: BP 123/89
[2018-02-10] MEDS ORDERED: POTASSIUM CHLORIDE 20 MEQ TAB.PRT.SR PO ONE (14:00)
[2018-02-10 14:08] LABS: HEPATITIS B SURFACE AG Negative (Negative)
[2018-02-10 16:00] VITALS: BP 116/90
[2018-02-10 20:00] VITALS: BP 134/99
[2018-02-10] MEDS: TRAZODONE 100 MG TABLET PO SCH (21:41)
[2018-02-10] MEDS: MICONAZOLE NITRATE 2% VAG CREA 45 GM TUBE VG SCH (21:42)
[2018-02-11 07:03] LABS: BASOPHILS % (AUTO) 0.6 % (0.0-2.0); EOSINOPHILS # (AUTO) 0.1 K/uL (0.0-0.7); EOSINOPHILS % (AUTO) 1.2 % (0.0-7.0); HEMATOCRIT 40.4 % (31.2-41.9); HEMOGLOBIN 13.9 g/dL (10.9-14.3); LYMPHOCYTES # (AUTO) 2.2 K/uL (20.0-40.0); MEAN CORPUSCULAR HEMOGLOBIN 34.8 uug (24.7-32.8); MEAN CORPUSCULAR HGB CONC 35 g/dL (32.3-35.6); MEAN CORPUSCULAR VOLUME 100.9 fL (75.5-95.3); MONOCYTES # (AUTO) 0.5 K/uL (2.0-10.0); MONOCYTES % (AUTO) 6.1 % (0.0-11.0); NEUTROPHILS # (AUTO) 5.1 K/uL (1.8-8.9); NEUTROPHILS % (AUTO) 64.1 % (38.5-71.5); PLATELET COUNT (AUTO) 130 K/uL (179-408)
[2018-02-11 07:06] LABS: CREATININE 0.9 mg/dL (0.6-1.3); POTASSIUM 3.2 mmol/L (3.5-5.1)
[2018-02-11 08:17] VITALS: BP 103/73
[2018-02-11] MEDS: ESCITALOPRAM OXALATE 10 MG TABLET PO SCH (08:43)
[2018-02-11] MEDS: LORAZEPAM 1 MG TABLET PO SCH ×4 (08:43→20:25)
[2018-02-11] MEDS: MULTIVITAMINS,THERAPEUTIC TABLET PO SCH (08:43)
[2018-02-11] MEDS: THIAMINE HCL 100 MG TABLET PO SCH (08:43)
[2018-02-11] MEDS: FOLIC ACID 1 MG TABLET PO SCH (08:43)
[2018-02-11] MEDS ORDERED: GABAPENTIN 300 MG CAPSULE PO SCH (09:00)
[2018-02-11] MEDS ORDERED: HYDROXYZINE PAMOATE 25 MG CAPSULE PO PRN (11:45)
[2018-02-11] MEDS ORDERED: POTASSIUM CHLORIDE 20 MEQ TAB.PRT.SR PO ONE (12:15)
[2018-02-11 12:18] VITALS: BP 130/90
[2018-02-11] MEDS: GABAPENTIN 300 MG CAPSULE PO SCH ×2 (14:07→20:29)
[2018-02-11 16:00] VITALS: BP 117/89
[2018-02-11 20:00] VITALS: BP 121/98
[2018-02-11] MEDS: MICONAZOLE NITRATE 2% VAG CREA 45 GM TUBE VG SCH (20:29)
[2018-02-11] MEDS: TRAZODONE 100 MG TABLET PO SCH (20:29)
[2018-02-12 08:40] VITALS: BP 121/98
[2018-02-12] MEDS: THIAMINE HCL 100 MG TABLET PO SCH (09:14)
[2018-02-12] MEDS: FOLIC ACID 1 MG TABLET PO SCH (09:14)
[2018-02-12] MEDS: MULTIVITAMINS,THERAPEUTIC TABLET PO SCH (09:14)
[2018-02-12] MEDS: ESCITALOPRAM OXALATE 10 MG TABLET PO SCH (09:15)
[2018-02-12] MEDS: GABAPENTIN 300 MG CAPSULE PO SCH ×2 (09:15→20:47)
[2018-02-12] MEDS: LORAZEPAM 1 MG TABLET PO SCH ×3 (09:15→20:47)
[2018-02-12 10:48] LABS: *BLOOD, URINE 2+ (NEGATIVE); *CLARITY,URINE CLOUDY (CLEAR); *COLOR,URINE DARK YELLOW (YELLOW); *KETONES,URINE NEGATIVE (NEGATIVE); *UROBILINOGEN,URINE 0.2 E.U./dl (NORMAL); LEUKOCYTE ESTERASE ,URINE TRACE (NEGATIVE); NITRITE, URINE NEGATIVE (NEGATIVE); UGLUCOSE NEGATIVE (NEGATIVE)
[2018-02-12 11:00] VITALS: BP 120/77
[2018-02-12 11:12] LABS: *BILIRUBIN,URIN 1+ (NEGATIVE); *PROTEIN,URINE 1+ (NEGATIVE)
[2018-02-12 11:14] LABS: BACTERIA,URINE FEW /HPF (NONE SEEN); SQUAMOUS EPITHELIAL CELL,UR MODERATE /HPF (NONE SEEN); WBC,URINE 20-50 /HPF (0-3)
[2018-02-12 11:15] LABS: MUCUS,URINE MANY /LPF (0-FEW)
[2018-02-12 12:00] VITALS: BP 120/77
[2018-02-12 16:00] VITALS: BP 112/70
[2018-02-12 20:00] VITALS: BP 124/78
[2018-02-12] MEDS: TRAZODONE 100 MG TABLET PO SCH (20:47)
[2018-02-12] MEDS: NITROFURANTOIN/NITROFURAN MAC 100 MG CAPSULE PO SCH (20:47)
[2018-02-12] MEDS: MICONAZOLE NITRATE 2% VAG CREA 45 GM TUBE VG SCH (20:48)
[2018-02-13] VITALS: BP 96/60
[2018-02-13 06:07] LABS: *GC NAA Negative (Negative); *TRIC.VAG. NAA Negative (Negative)
[2018-02-13 08:08] VITALS: BP 104/53
[2018-02-13] MEDS: MULTIVITAMINS,THERAPEUTIC TABLET PO SCH (08:36)
[2018-02-13] MEDS: FOLIC ACID 1 MG TABLET PO SCH (08:36)
[2018-02-13] MEDS: NITROFURANTOIN/NITROFURAN MAC 100 MG CAPSULE PO SCH ×2 (08:36→20:52)
[2018-02-13] MEDS: THIAMINE HCL 100 MG TABLET PO SCH (08:36)
[2018-02-13] MEDS: GABAPENTIN 300 MG CAPSULE PO SCH (08:36)
[2018-02-13] MEDS: ESCITALOPRAM OXALATE 10 MG TABLET PO SCH (08:36)
[2018-02-13] MEDS ORDERED: LORAZEPAM 1 MG TABLET PO SCH ×2 (09:00)
[2018-02-13] MEDS ORDERED: ACAMPROSATE CALCIUM 333 MG TABLET.DR PO ONE (09:00)
[2018-02-13] MEDS ORDERED: ACAM333T8 PO (11:28)
[2018-02-13 12:00] VITALS: BP 121/88
[2018-02-13 17:14] VITALS: BP 137/96
[2018-02-13] MEDS: IBUPROFEN 400 MG TABLET PO PRN (19:35)
[2018-02-13 20:00] VITALS: BP 133/94
[2018-02-13] MEDS ORDERED: TRAZ-147 PO (20:40)
[2018-02-13] MEDS ORDERED: IBUP-1953 PO (20:40)
[2018-02-13] MEDS ORDERED: CLON0.1T14 PO (20:40)
[2018-02-13] MEDS ORDERED: NITR100C11 PO (20:40)
[2018-02-13] MEDS ORDERED: HYDR-3895 PO (20:40)
[2018-02-13] MEDS: MICONAZOLE NITRATE 2% VAG CREA 45 GM TUBE VG SCH (20:52)
[2018-02-13] MEDS: TRAZODONE 100 MG TABLET PO SCH (20:52)
[2018-02-13] MEDS ORDERED: GABAPENTIN 300 MG CAPSULE PO SCH (21:00)
[2018-02-14 08:00] VITALS: BP 123/85
[2018-02-14] MEDS: ESCITALOPRAM OXALATE 10 MG TABLET PO SCH (08:30)
[2018-02-14] MEDS: MULTIVITAMINS,THERAPEUTIC TABLET PO SCH (08:30)
[2018-02-14] MEDS: FOLIC ACID 1 MG TABLET PO SCH (08:30)
[2018-02-14] MEDS: THIAMINE HCL 100 MG TABLET PO SCH (08:30)
[2018-02-14] MEDS: NITROFURANTOIN/NITROFURAN MAC 100 MG CAPSULE PO SCH (08:30)
== END 2018-02-14 09:53 | disposition home or self-care (01) | DRG 895 ==
LOC: SRC 12:30
PROVIDERS: ADMIT Internal Medicine; ATTEND Internal Medicine
PROC: HZ2ZZZZ Detoxification Services for Substance Abuse Treatment (ICD-10-PCS; principal; 2018-02-08)
PROC: HZ41ZZZ Group Counseling for Substance Abuse Treatment, Behavioral (ICD-10-PCS; 2018-02-09)
PROC: HZ31ZZZ Individual Counseling for Substance Abuse Treatment, Behavioral (ICD-10-PCS; 2018-02-12)
DX: F10.239 Alcohol dependence with withdrawal, unspecified (principal); N30.01 Acute cystitis with hematuria; K70.10 Alcoholic hepatitis without ascites; Y90.8 Blood alcohol level of 240 mg/100 ml or more; Z59.1 Inadequate housing; F41.9 Anxiety disorder, unspecified; Z87.442 Personal history of urinary calculi; F17.210 Nicotine dependence, cigarettes, uncomplicated; G47.00 Insomnia, unspecified; Z81.1 Family history of alcohol abuse and dependence; Z81.3 Family history of other psychoactive substance abuse and dependence; F39 Unspecified mood [affective] disorder; D69.6 Thrombocytopenia, unspecified; E87.6 Hypokalemia; G25.81 Restless legs syndrome
CPT/HCPCS: 36415; 70030-TC; 80307; 83735; 84100; 84703; 85025; 86592; 86705; 86803; 87086; 87210; 87340; 87491; 87806; A4663; G0480; J2405; J3411; Q0162